=== PATIENT | female | born 2005 | race Caucasian/White ===

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

== ENCOUNTER 2025-02-17 14:24 | Outpatient (CLI) | payer BC, SELFPAY ==
--- OUTSIDE RECORDS SUMMARY | 2025-01-16 18:07 | XMS_ITS | Encounter Summary ---
Author Organization [employer] ([place], [place], [place], [place], [place]) Address [address] [place] [address] Care Team Providers Care President Finance Company Name Role Phone [facility] [place], Find-A-Doc Primary Care Provider Reason for Visit * Reason Comments Tachycardia Encounter Details Date Type Department Care Team (Late st Contact Info) Description 01/16/2025 6:07 PM EST - 01/16/2025 8:59 PM EST Emergency [facility] Emergency Department [address] [place] [address] Prateek Saavedra MD [address] [place] [address] [phone] [place] [address] [place] [address] [phone] Palpitations (Primary Dx) Discharge Disposition: Home or [...] on file Legal Sex Female 5:05 PM MANAGER REGULATORY Gender Identity Not on file Sexual Orientation [...] patient have homicidal thoughts? No 6:14 PM MANAGER REGULATORY Santino Betancur * Tidal Volume Answer Date of Assessment Author 350 01/16/2025 6:16 PM Santino Hoover * Prior Psychiatric Event Question Answer Date of Assessment Author Has patient had a prior psyc hiatric hospitalization or mental health admission? No 01/16/2025 6:14 PM MANAGER REGULATORY Santino Betancur * Shock Index Answer Date of Assessment Author 0.7 01/16/2025 7:50 PM MANAGER REGULATORY Hardeep Michele * Oxygen Therapy Question Answer Date of Assessment Author SpO2 100 01/16/2025 7:50 PM MANAGER REGULATORY Hardeep Paul * Mobility Question Answer Date of Assessment Author VTE Risk Score 3 01/16/2025 8:01 PM MANAGER REGULATORY Vinayak mott, User * Pain Assessment Timer Question Answer Date of Assessment Author Restart Pain Assessment Timer Yes 01/16/2025 6:11 PM Santino Hoover * Suicide Risk Level Answer Date of Assessment Author No Risk 01/16/2025 6:14 PM Santino Hoover * [facility] Fall Risk Assessment Question Answer Date of Assessment Author History of falls in last 3 [facility], including since admission 0 01/16/2025 6:14 PM MANAGER REGULATORY Agatha Betancur Confusion or Disorientation 0 01/16/2025 [...] Safety Measures Answer Date of Assessment Author [place] patient to surroundings;Hourly rounding 1 03/18/2024 6:14 [...] Author Breathing (WDL) WD 01/16/2025 6:22 PM MANAGER REGULATORY Charlee Medina RN * Circulation Question Answer Date of Assessment Author Circulation (WD) WD 01/16/2025 6:22 PM Charlee Naqvi RN * Disability Question Answer Date of Assessment Author Eye Opening 4 01/16/2025 6:22 PM Charlee Naqvi RN Best Motor Response 6 01/16/2025 6:22 PM Charlee Ford RN Best Verbal Response 5 01/16/2025 6:22 PM Charlee Marshall RN [place] Coma Scale Score 15 01/16/2025 6:22 PM Charlee Naqvi RN Disability (WD) WD 01/16/2025 6:22 PM MANAGER REGULATORY Charlee Prasad RN * Restart Vitals Timer Answer Date of Assessment Author Yes 01/16/2025 7:50 PM MANAGER REGULATORY Hardeep Michele * Pain Assessment Question Answer [...] 01/16/2025 6:11 PM Charlee Naqvi RN Bedside Sanforizer On Yes 01/16/2025 6:1 1 PM Charlee Naqvi RN Bedside Cardiac Audible Yes 01/16/2025 6:11 P M Charlee Naqvi RN Bedside Cardiac Alarms Set Yes 01/16/2025 6:1 1 PM Charlee Naqvi RN Cardiac (WDL) X 01/16/2025 6:11 PM Charlee Tracy RN * [place] Suicide Severity Rating Screening Question Answer Date [...] Safety Measures Answer Date of Assessment Author [place] patient to surroundings;Hourly rounding 1 03/18/2024 6:14 PM Santino Hoover * Height and Weight Question Answer Date of Assessment Author BMI (Calculated) 19.4 01/16/2025 6:16 PM MANAGER REGULATORY Santino Barrera * Vitals Question Answer Date of Assessment Author BP 123/72 01/16/2025 7:50 PM Hardeep Cox Pulse 86 01/16/2025 7:50 PM Hardeep Cox Resp 20 01/16/2025 7:50 PM Hardeep Cox * Airway Question Answer Date of Assessment Author Airway (WDLing) WDL 01/16/2025 6:22 PM Charlee Naqvi RN * Breathing Question Answer Date of Assessment Author Breathing ([facility]) WD 01/16/2025 6:22 PM MANAGER REGULATORY Charlee Medina RN * Circulation Question Answer Date of Assessment Author Circulation ([facility]) [facility] 01/16/2025 6:22 PM Charlee Naqvi RN * Disability Question Answer Date of Assessment Author Eye Opening 4 01/16/2025 6:22 PM Charlee Naqvi RN Best Motor Response 6 01/16/2025 6:22 PM CS Charlee Chao RN Best Verbal Response 5 01/16/2025 6:22 PM C Charlee Montaño RN [place] Coma Scale Score 15 01/16/2025 6:22 PM Charlee Naqvi RN Disability ([facility]) [facility] 01/16/2025 6:22 PM MANAGER REGULATORY Charlee Prasad RN * [place] Suicide Severity Rating Screening Question Answer Date [...] Date Author SpO2 100 01/16/2025 7:50 PM MANAGER REGULATORY Hardeep Paul * Suicide Risk Level Answer Entry Date Author No Risk 01/16/2025 6:14 PM Santino Hoover * Basic Safety Measures Answer Entry Date Author [place] patient to surroundings;Hourly rounding 1 03/18/2024 6:14 [...] Question Answer Entry Date Author Airway (L) [facility] 01/16/2025 6:22 PM MANAGER REGULATORY Charlee Gomez RN * Breathing Question Answer Entry Date Author Breathing ([facility]) [facility] 01/16/2025 6:22 PM MANAGER REGULATORY Charlee Medina RN * Circulation Question Answer Entry Date Author Circulation ([facility]) [facility] 01/16/2025 6:22 PM Charlee Naqvi RN * [...] 01/16/2025 6:11 PM Charlee Naqvi RN Bedside Sanforizer On Yes 01/16/2025 6:1 1 PM Charlee Naqvi RN Bedside Cardiac Audible Yes 01/16/2025 6:11 P M Charlee Naqvi RN Bedside Cardiac Alarms Set Yes 01/16/2025 6:1 1 PM Charlee Naqvi RN * [place] Suicide Severity Rating Screening Question Answer Entry [...] you can call the Find-a-Doc line at [phone] GER [facility] * Attachments The following attachments cannot be sent through Care Everywhere. * Palpitations ([place]) documented in this encounter ED Notes * Antonio Orr MD - 01/16/2025 6:30 PM EST Subjective Chief Complaint: Tachycardia Patient reports that her heart rate has been elevated for the last 4 days. She went to [facility] today and was told to come [...] Color, UA Yellow Clarity, UA Hazy Specific [place], UA 1.010 1.001 - 1.030 pH, UA [...] not been tachycardic here, was told by [facility] to come [facility] emergency department for further evaluation pending laboratory [...] the last 4 days. She went to [facility] today and was told to come [...] follow-up Robert Crabtree MD Specialty: Cardiology, Radiology [address] [place] [phone] Next Steps: Schedule an appointment as soon as possible for a visit in 3 day(s) [facility] Find[facility] Relationship: PCP - [facility] Find-a-Doc [facility] [id number] Next Steps: Schedule an appointment as soon as possible for a visit in 1 week(s) Electronically Signed By Antonio Orr MD 01/16/252052 [facility]ER [facility] * Santino Betancur - 01/16/2025 6:10 PM EST Pt arrived POV. She states she has had a fast heart rate since Sunday and feeling weak. She wentto [facility] and was sent to ER. Denies any pain. [facility] documented in this encounter Plan of Treatment [...] electronically signed by Collin Leroy MD Voice seam press operator technology ([employer]) is used for the dictation of this note and sound-alike words might be erroneously placed despite reviewing this note for accuracy. Errors in dictation may reflect use of voice recognition software and not all errors in seam press operator may have been detected prior to [...] electronically signed by Collin Leroy MD Voice seam press operator technology ([employer]) is used for the dictation of this note and sound-alike words might be erroneously placed despite reviewing this note for accuracy. Errors in dictation may reflect use of voice recognition software and not all errors in seam press operator may have been detected prior to signing. us Prateek Saavedra MD IMG DIAGNOSTIC IMAGING ORDERABLE S Final Result * (ABNORMAL) Urinalysis Microscopic Only (01/16/2025 6:47 PM EST) [facility] WBC, UA 0-5 None Seen, 0-5 /HPF 01/16/2025 7:03 PM EST [facility] RBC, UA 0-2 None Seen, 0-2 /HPF 01/16/2025 7:03 PM EST [facility] Bacteria, UA Trace(A) None Seen 01/16/2025 7:03 PM EST [facility] SQUAMOUS EPITHELIAL 0-2(A) None Seen /HPF 01/16/2025 7:03 PM [facility] Urine URINE SPECIMEN COLLECTION, CLEAN CATCH / Unknown 01/16/2025 6:47 PM EST 01/16/2025 6:53 PM EST us Prateek Saavedra MD URINE ORDERABLES Final Result [facility] [address] [place] [address] * Screen, urine (01/16/2025 6:47 PM EST) Pathologist [facility] Preg Test, Ur Negative Negative, Inconclusive 01/16/2025 7:03 PM EST [facility] Urine 01/16/2025 6:47 PM EST 01/16/2025 6:52 PM EST Prateek Saavedra MD URINE ORDERABLES Final Result [facility] [address] [place] [address], [facility] [phone] * Triage Drug Screen, Urine (01/16/2025 6:47 PM EST) Amphetamine Urine Negative Negative 025 7:04 PM EST [facility] Barbiturate Screen Negative Negative 2024 7:04 PM [facility] Benzodiazepine Screen Negative Negative 7:04 PM [facility] Cocaine (Metab.) Screen Negative Negative 1 03/18/2024 7:04 PM [facility] MDMA Ur Negative Negative 01/16/2025 7:04 PM [facility] Methadone Screen Negative Negative 01/17/20 7:04 PM [facility] Opiate Screen Negative Negative 01/16/2025 7:04 PM [facility] Phencyclidine Screen Negative Negative 12/28 7:04 PM [facility] Tricyclic Screen Negative Negative 01/17/20 7:04 PM [facility] Tetrahydrocannabinol Negative Negative 12/28 7:04 PM [facility] Methamphetamine Screen Negative Negative 7:04 PM [facility] Oxycodone Screen Negative Negative 01/17/20 7:04 PM [facility] Urine 01/16/2025 6:47 PM EST 01/16/2025 6:52 PM EST Narrative [facility] - 01/16/2025 7:04 PM EST [...] Prateek Saavedra MD URINE ORDERABLES Final Result [facility] [address] [place] [address], [facility] [phone] * (ABNORMAL) Urinalysis, Reflex Microscopic and Culture If Indicated (01/16/2025 6:47 PM EST) Color, UA Yellow 01/16/2025 7:02 PM [facility] Clarity, UA Hazy 01/16/2025 7:02 PM [facility] Specific [place], UA 1.010 1.001 - 1.030 01/16/2025 7:02 PM [facility] pH, UA 8.0(H) 6.0 - 7.5 01/16/2025 7:02 PM [facility] Leukocytes, UA Trace(A) Negative 01/16/2025 7:02 PM [facility] Nitrite, UA Negative Negative 01/16/2025 7:02 PM [facility] Protein, UA Negative Negative 01/16/2025 7:02 PM [facility] Glucose, UA Negative Negative 01/16/2025 7:02 PM [facility] Ketones, UA Negative Negative 01/16/2025 7:02 PM [facility] Bilirubin, UA Negative Negative 01/16/2025 7:02 PM [facility] Blood, UA Trace(A) Negative 01/16/2025 7:02 PM [facility] Urobilinogen, UA 0.2 mg/dL Normal 01/16/2025 7:02 PM [facility] Specimen Source Urine, Clean Catch 01/16/2025 7:02 PM [facility] Urine URINE SPECIMEN COLLECTION, CLEAN CATCH / Unknown 01/16/2025 6:47 PM EST 01/16/2025 6:53 PM EST us Prateek Saavedra MD URINE ORDERABLES Final Result Performing Organization Address City/[facility]/ZIP Co de Phone Number [facility] [address] [place] [address] * TSH (01/16/2025 6:36 PM EST) Pathologist [facility] TSH 2.191 0.358 - 3.740 uIU/mL 01/16/2025 7:55 PM EST [facility] Blood Venipuncture / Unknown 01/16/2025 6:36 PM EST 01/16/2025 6:51 PM EST Narrative [facility] - 01/16/2025 7:55 PM EST Biotin supplements can cause clinically significant incorrect lab test results. The FDA has seen an increase in the number of reported adverse events related to biotin interference with lab tests. Prateek Saavedra MD LAB BLOOD ORDERABLES Final Resul t Performing Organization Address City/[facility] Co de Phone Number [facility] [address] [place] [address] * COVID/Influenza A+B Antigen (01/16/2025 6:36 PM EST) [facility] SARS-COV/COV 2 ANTIGEN Negative Negative, Invalid 01/16/2025 7:42 PM EST [facility] INFLUENZA AAG Negative Negative, Invalid 01/16/2025 7:42 PM EST [facility] INFLUENZA BAG Negative Negative, Invalid 01/16/2025 7:42 PM EST [facility] Nasal Swab (Nasal) 01/16/2025 6:36 PM EST 01/16/2025 6:51 PM EST Narrative [facility] - 01/16/2025 7:42 PM EST [employer] Veritor System for Rapid Detection of SARS-CoV-2 [...] MICROBIOLOGY - GENERAL ORDERABLE S Final Result [facility] [address] [place] [address], [facility] [phone] * Comprehensive metabolic panel (01/16/2025 6:36 PM EST) Sodium 141 136 - 145 meq/L 01/16/2025 7:28 PM EST [facility] Potassium 3.5 3.5 - 5.1 meq/L 01/16/2025 7:28 PM [facility] Chloride 106 98 - 107 meq/L 01/16/2025 7:28 PM [facility] CO2 26 21 - 32 meq/L 01/16/2025 7:28 PM [facility] Calcium 8.7 8.5 - 10.1 mg/dL 01/16/2025 7:28 PM [facility] Glucose 95 74 - 100 mg/dL 01/16/2025 7:28 PM [facility] BUN 12 7 - 18 mg/dL 01/16/2025 7:28 PM [facility] Creatinine 0.88 0.55 - 1.02 mg/dL 01/16/2025 7:28 PM [facility] Albumin 3.8 3.4 - 5.0 g/dL 01/16/2025 7:28 PM [facility] Alkaline Phosphatase 55 50 - 136 U/L 01/16/2025 7:28 PM [facility] ALT 24 12 - 78 U/L 01/16/2025 7:28 PM [facility] AST 18 15 - 37 U/L 01/16/2025 7:28 PM [facility] Total Bilirubin 0.3 0.2 - 1.0 mg/dL 01/16/2025 7:28 PM [facility] Protein, Total 7.3 6.4 - 8.2 gm/dL 01/16/2025 7:28 PM [facility] Anion Gap 13 - 01/16/2025 7:28 PM [facility] Globulin 3.5 0.4 - 4.9 g/dL 01/16/2025 7:28 PM [facility] Osmolality Calc 280.8 mOsm/kg 7:28 PM [facility] eGFR (mL/min/1.73m2) >60 >=60 mL/min/1.7 3m2 01/16/2025 7:28 PM [facility] Comment:ESTIMATED GFR IS NOT ACCURATE CREATININE CLEARANCE IN PREDICTING GLOMERULAR FILTRATION RATE. ESTIMATED GFR IS NOT APPLICABLE FOR DIALYSIS PATIENTS. Blood Venipuncture / Unknown 01/16/2025 6:36 PM EST 01/16/2025 6:51 PM EST us Prateek Saavedra MD LAB BLOOD ORDERABLES Final Resul t [facility] [address] [place] [address], [facility] [phone] * CBC with Auto Diff (01/16/2025 6:36 PM EST) WBC 7.7 4.0 - 10.0 K/ L 01/16/2025 7:02 PM [facility] RBC 4.29 3.93 - 5.22 M/ L 01/16/2025 7:02 PM [facility] Hemoglobin 13.2 11.2 - 15.7 GM/DL 01/16/2025 7:02 PM [facility] Hematocrit 38.9 34.1 - 44.9 % 01/16/2025 7:02 PM [facility] MCV 91 79 - 95 fL 01/16/2025 7:02 PM [facility] MCH 30.8 25.6 - 32.2 pg 01/16/2025 7:02 PM [facility] MCHC 33.9 32.3 - 36.5 GM/DL 01/16/2025 7:02 PM [facility] RDW 11.9 11.5 - 14.5 % 01/16/2025 7:02 PM [facility] Platelets 280 182 - 369 K/CU MM 01/16/2025 7:02 PM [facility] MPV 9.9 9.4 - 12.4 fL 01/16/2025 7:02 PM [facility] Nucleated Red Blood Cell 0.0 0 - 0.2 % 01/16/2025 7:02 PM [facility] % Neutros 53 42 - 75 % 01/16/2025 7:02 PM [facility] % Lymphs 35 19 - 52 % 01/16/2025 7:02 PM [facility] % Monos 8 5 - 13 % 01/16/2025 7:02 PM [facility] % Eos 2.2 1.0 - 7.0 % 01/16/2025 7:02 PM [facility] % Baso 1 0 - 2 % 01/16/2025 7:02 PM [facility] NRBC Absolute <0.01 0 - 0.012 K/ul 01/16/2025 7:02 PM [facility] # Neutros 4.10 1.56 - 6.13 K/ L 01/16/2025 7:02 PM [facility] # Lymphs 2.71 K/ L 01/16/2025 7:02 PM EST [facility] # Monos 0.60 0.24 - 0.82 K/ L 01/16/2025 7:02 PM EST [facility] # Eos 0.17 0.00 - 6.00 K/ L 01/16/2025 7:02 PM EST [facility] # Baso 0.06 0.01 - 0.08 K/ L 01/16/2025 7:02 PM EST [facility] % Imm Grans 0.70 % 01/16/2025 7:02 PM EST [facility] # IG 0.05 0.00 - 0.05 K/uL 01/16/2025 7:02 PM [facility] Blood Venipuncture / Unknown 01/16/2025 6:36 PM EST 01/16/2025 6:51 PM EST Narrative [facility] - 01/16/2025 7:02 PM EST [...] ORDERABLES Final Resul t Performing Organization Address City/State/[facility] Co de Phone Number [facility] [address] [place] [address] * ECG 12 lead (01/16/2025 6:11 PM EST) VENTRICULAR RATE EKG/MIN 93 BPM GE MUSE ATRIAL RATE (MCT) 93 BPM GE MUSE OK Interval 140 ms GE MUSE QRS-INTERVAL (MSEC) 78 ms GE MUSE QT Interval 348 ms GE MUSE QTC Interval 432 ms GE MUSE P [place] 80 degrees GE MUSE R AXIS (MCT) 87 degrees GE MUSE T Wave [place] 67 degrees GE MUSE [place] Diagnosis Normal sinus rhythm with sinus arrhythmia [...] Michele) documented in this encounter Care Teams President Finance Company Relationship Specialty Start Date End Date [facility] Connection, Find-A-Doc [facility] [place] [address] PCP - General 01/16/25 01/27/25 documented as of this encounter
--- OUTSIDE RECORDS SUMMARY | 2025-02-17 14:27 | XMS_ITS | Clinical Summary ---
Author Organization [employer] ([place], [place], [place], [place], [place]) Address [address] [place] [address] Care Team Providers Care Last Chalker Name Role Phone Daja Gallagher ИВАН Primary Care Provider Allergies No known active allergies Medications No known medications Encounters Date Type Department Care Team Description 01/16/2025 6:07 PM EST - 01/16/2025 8:59 PM EST Emergency [facility] [address] [place] [address] Prateek Saavedra MD Fahey, Nicholas, MD Palpitations (Primary Dx) Discharge Disposition: Home or Self Care 01/16/2025 Travel from Last 3 Months Social History Tobacco Use Types Packs/Day Years Used Date Smoking Tobacco: Never Smokeless Tobacco: Never Tobacco Cessation:Counseling Given: Not Answered Alcohol Use Standard Drinks/Week Comments Never 0 (1 standard drink = 0.6 oz pur e alcohol) Comments Unknown Sex and Gender Information Value Date Recorded Sex Assigned at Not on file 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 Gender Identity Not on file Sexual Orientation Not on file Last Filed Vital Signs Vital Sign Reading [...] Mass Index 19.37 01/16/2025 6:16 PM EST Plan of Treatment Health Maintenance Due Date Last Done Comments Depression Screening (12+) 2017 HIV Screening 02/10/2020 Meningococcal B Vaccine (1 of 2 - Standard) 2021 Hepatitis C Screening 2023 COVID-19 VACCINE (1 - season) 2024 Influenza Vaccine (#1) 2024 DTAP/TDAP/TD VACCINES (7 - Td or Tdap) 11/25/2025 11/26/2015, 02/15/2009, 02/15/2009, Additional history exists Tobacco Cessation Counseling and Screening (12+) 01/16/2026 01/16/2025 Pneumococcal Vaccine: 0-49 Years Aged Out 02/16/2006, 2005, 2005, Additional history exists No longer eligible based on patient's age to complete this topic Procedures Procedure Name Priority Date/Time Associated Diagnosis Comments XR CHEST PA AND LATERAL STAT 01/16/2025 7:12 PM EST URINALYSIS MICROSCOPIC STAT 6:47 PM EST SCREEN, URINE STAT 01/16/2025 6:47 PM EST TRIAGE DRUG SCREEN, URINE STAT 01/16/2025 6:47 PM EST URINALYSIS, REFLEX MICROSCOPIC AND CULTURE IF INDICATED STAT 01/16/2025 6:47 PM EST TSH Add-On 01/16/2025 6:36 PM EST COMPREHENSIVE METABOLIC PANEL STAT 01/16/2025 6:36 PM EST CBC W/ AUTO DIFF STAT 01/16/2025 6:36 PM EST COVID19 SARS-COV/COV-2 INFLUENZA A/B AG STAT 01/16/2025 6:36 PM EST FS_MODEL_IP_ECG 12-LEAD STAT 01/16/2025 6:11 PM EST EKG-SCANNED 01/16/2025 from Last 3 Months Results * XR chest 2 views (01/16/2025 7:12 PM EST) Anatomical Region Laterality Modality Chest X-Ray 01/18/2025 6:17 AM EST Impressions 01/18/2025 6:19 AM EST Unremarkable two-view chest. Images reviewed, interpreted, dictated and electronically signed by Collin Leroy MD Voice waste reduction coordinator technology (Power Scribe) is used for the dictation of this note and sound-alike words might be erroneously placed despite reviewing this note for accuracy. Errors in dictation may reflect use of voice recognition software and not all errors in waste reduction coordinator may have been detected prior to signing. [...] electronically signed by Collin Leroy MD Voice waste reduction coordinator technology (Power Scribe) is used for the dictation of this note and sound-alike words might be erroneously placed despite reviewing this note for accuracy. Errors in dictation may reflect use of voice recognition software and not all errors in waste reduction coordinator may have been detected prior to signing. Prateek Hill MD IMG DIAGNOSTIC IMAGING ORDERABLE S Final Result * (ABNORMAL) Urinalysis, Reflex Microscopic and Culture If Indicated (01/16/2025 6:47 PM EST) Color, UA Yellow 01/16/2025 7:02 PM [facility] Clarity, UA Hazy 01/16/2025 7:02 PM [facility] Specific [place], UA 1.010 1.001 - 1.030 01/16/2025 7:02 PM [facility] pH, UA 8.0(H) 6.0 - 7.5 01/16/2025 7:02 PM [facility] Leukocytes, UA Trace(A) Negative 01/16/2025 7:02 PM [facility] Nitrite, UA Negative Negative 01/16/2025 7:02 PM [facility] Protein, UA Negative Negative 01/16/2025 7:02 PM [facility] Glucose, UA Negative Negative 01/16/2025 7:02 PM [facility] Ketones, UA Negative Negative 01/16/2025 7:02 PM [facility] Bilirubin, UA Negative Negative 01/16/2025 7:02 PM [facility] Blood, UA Trace(A) Negative 01/16/2025 7:02 PM [facility] Urobilinogen, UA 0.2 mg/dL Normal 01/16/2025 7:02 PM [facility] Specimen Source Urine, Clean Catch 01/16/2025 7:02 PM [facility] Urine URINE SPECIMEN COLLECTION, CLEAN CATCH / Unknown 01/16/2025 6:47 PM EST 01/16/2025 6:53 PM EST us Prateek Saavedra MD URINE ORDERABLES Final Result [facility] [address] [place] [address] * Triage Drug Screen, Urine (01/16/2025 6:47 PM EST) Amphetamine Urine Negative Negative 025 7:04 PM EST [facility] Barbiturate Screen Negative Negative 2024 7:04 PM [facility] Benzodiazepine Screen Negative Negative 7:04 PM [facility] Cocaine (Metab.) Screen Negative Negative 1 03/18/2024 7:04 PM [facility] MDMA Ur Negative Negative 01/16/2025 7:04 PM [facility] Methadone Screen Negative Negative 01/17/20 7:04 PM [facility] Opiate Screen Negative Negative 01/16/2025 7:04 PM [facility] Phencyclidine Screen Negative Negative 12/28 7:04 PM [facility] Tricyclic Screen Negative Negative 01/17/20 7:04 PM [facility] Tetrahydrocannabinol Negative Negative 12/28 7:04 PM [facility] Methamphetamine Screen Negative Negative 7:04 PM [facility] Oxycodone Screen Negative Negative 01/17/20 7:04 PM [facility] Urine 01/16/2025 6:47 PM EST 01/16/2025 6:52 PM EST Narrative [facility] - 01/16/2025 7:04 PM EST This urine drug of abuse screen is for medical purposes only. A positive result is a preliminary analytical result which has not been confirmed. Drug Cutoff Limits are: Amp/Methamp: 1000 ng/mL Barbiturates: 200 ng/mL Benzodiazepines: 200 ng/mL Cannabinoids: 50 ng/mL Cocaine Metabolites: 300 ng/mL Fentanyl: 1.0 ng/mL Opiates: 300 ng/mL Prateek Saavedra MD URINE ORDERABLES Final Result [facility] [address] [place] [address] * (ABNORMAL) Urinalysis Microscopic Only (01/16/2025 6:47 PM EST) WBC, UA 0-5 None Seen, 0-5 /HPF 01/16/2025 7:03 PM EST [facility] RBC, UA 0-2 None Seen, 0-2 /HPF 01/16/2025 7:03 PM [facility] Bacteria, UA Trace(A) None Seen 01/16/2025 7:03 PM [facility] SQUAMOUS EPITHELIAL 0-2(A) None Seen /HPF 01/16/2025 7:03 PM [facility] Urine URINE SPECIMEN COLLECTION, CLEAN CATCH / Unknown 01/16/2025 6:47 PM EST 01/16/2025 6:53 PM EST us Prateek Saavedra MD URINE ORDERABLES Final Result Performing Organization Address City/[facility]/ZIP Co de Phone Number [facility] [address] [place] [address] * Screen, urine (01/16/2025 6:47 PM EST) Preg Test, Ur Negative Negative, Inconclusive 01/16/2025 7:03 PM [facility] Urine 01/16/2025 6:47 PM EST 01/16/2025 6:52 PM EST us Prateek Saavedra MD URINE ORDERABLES Final Result Performing Organization Address City/[facility]/ZIP Co de Phone Number [facility] [address] [place] [address] * COVID/Influenza A+B Antigen (01/16/2025 6:36 PM EST) SARS-COV/COV 2 ANTIGEN Negative Negative, Invalid 01/16/2025 7:42 PM [facility] INFLUENZA AAG Negative Negative, Invalid 01/16/2025 7:42 PM [facility] INFLUENZA BAG Negative Negative, Invalid 01/16/2025 7:42 PM [facility] Nasal Swab (Nasal) 01/16/2025 6:36 PM EST 01/16/2025 6:51 PM EST [facility] - 01/16/2025 7:42 PM EST The [id number] System for Rapid Detection of SARS-CoV-2 & [...] MICROBIOLOGY - GENERAL ORDERABLE S Final Result Performing Organization Address City/State/[facility] Co de Phone Number [facility] [address] [place] [address] * CBC with Auto Diff (01/16/2025 6:36 PM EST) WBC 7.7 4.0 - 10.0 K/ L 01/16/2025 7:02 PM [facility] RBC 4.29 3.93 - 5.22 M/ L 01/16/2025 7:02 PM [facility] Hemoglobin 13.2 11.2 - 15.7 GM/DL 01/16/2025 7:02 PM [facility] Hematocrit 38.9 34.1 - 44.9 % 01/16/2025 7:02 PM [facility] MCV 91 79 - 95 fL 01/16/2025 7:02 PM [facility] MCH 30.8 25.6 - 32.2 pg 01/16/2025 7:02 PM [facility] MCHC 33.9 32.3 - 36.5 GM/DL 01/16/2025 7:02 PM [facility] RDW 11.9 11.5 - 14.5 % 01/16/2025 7:02 PM [facility] Platelets 280 182 - 369 K/CU MM 01/16/2025 7:02 PM [facility] MPV 9.9 9.4 - 12.4 fL 01/16/2025 7:02 PM [facility] Nucleated Red Blood Cell 0.0 0 - 0.2 % 01/16/2025 7:02 PM [facility] % Neutros 53 42 - 75 % 01/16/2025 7:02 PM [facility] % Lymphs 35 19 - 52 % 01/16/2025 7:02 PM [facility] % Monos 8 5 - 13 % 01/16/2025 7:02 PM [facility] % Eos 2.2 1.0 - 7.0 % 01/16/2025 7:02 PM [facility] % Baso 1 0 - 2 % 01/16/2025 7:02 PM [facility] NRBC Absolute <0.01 0 - 0.012 K/ul 01/16/2025 7:02 PM [facility] # Neutros 4.10 1.56 - 6.13 K/ L 01/16/2025 7:02 PM [facility] # Lymphs 2.71 K/ L 01/16/2025 7:02 PM [facility] # Monos 0.60 0.24 - 0.82 K/ L 01/16/2025 7:02 PM [facility] # Eos 0.17 0.00 - 6.00 K/ L 01/16/2025 7:02 PM EST [facility] # Baso 0.06 0.01 - 0.08 K/ L 01/16/2025 7:02 PM EST [facility] % Imm Grans 0.70 % 01/16/2025 7:02 PM EST [facility] # IG 0.05 0.00 - 0.05 K/uL 01/16/2025 7:02 PM EST [facility] Blood Venipuncture / Unknown 01/16/2025 6:36 PM EST 01/16/2025 6:51 PM EST Narrative [facility] - 01/16/2025 7:02 PM EST When [...] ORDERABLES Final Resul t Performing Organization Address City/[facility]/ZIP Co de Phone Number [facility] [address] [place] [address] * TSH (01/16/2025 6:36 PM EST) TSH 2.191 0.358 - 3.740 uIU/mL 01/16/2025 7:55 PM EST [facility] Blood Venipuncture / Unknown 01/16/2025 6:36 PM EST 01/16/2025 6:51 PM EST Narrative [facility] - 01/16/2025 7:55 PM EST Biotin supplements can cause clinically significant incorrect lab test results. The FDA has seen an increase in the number of reported adverse events related to biotin interference with lab tests. us Prateek Saavedra MD LAB BLOOD ORDERABLES Final Resul t Performing Organization Address City/[facility] Co de Phone Number [facility] [address] [place] [address] * Comprehensive metabolic panel (01/16/2025 6:36 PM EST) Sodium 141 136 - 145 meq/L 01/16/2025 7:28 PM [facility] Potassium 3.5 3.5 - 5.1 meq/L 01/16/2025 7:28 PM [facility] Chloride 106 98 - 107 meq/L 01/16/2025 7:28 PM [facility] CO2 26 21 - 32 meq/L 01/16/2025 7:28 PM [facility] Calcium 8.7 8.5 - 10.1 mg/dL 01/16/2025 7:28 PM [facility] Glucose 95 74 - 100 mg/dL 01/16/2025 7:28 PM [facility] BUN 12 7 - 18 mg/dL 01/16/2025 7:28 PM [facility] Creatinine 0.88 0.55 - 1.02 mg/dL 01/16/2025 7:28 PM [facility] Albumin 3.8 3.4 - 5.0 g/dL 01/16/2025 7:28 PM [facility] Alkaline Phosphatase 55 50 - 136 U/L 01/16/2025 7:28 PM [facility] ALT 24 12 - 78 U/L 01/16/2025 7:28 PM [facility] AST 18 15 - 37 U/L 01/16/2025 7:28 PM [facility] Total Bilirubin 0.3 0.2 - 1.0 mg/dL 01/16/2025 7:28 PM [facility] Protein, Total 7.3 6.4 - 8.2 gm/dL 01/16/2025 7:28 PM [facility] Anion Gap 13 - 01/16/2025 7:28 PM [facility] Globulin 3.5 0.4 - 4.9 g/dL 01/16/2025 7:28 PM [facility] Osmolality Calc 280.8 mOsm/kg 7:28 PM [facility] eGFR (mL/min/1.73m2) >60 >=60 mL/min/1.7 3m2 01/16/2025 7:28 PM EST [facility] Comment:ESTIMATED GFR IS NOT ACCURATE CREATININE CLEARANCE IN PREDICTING GLOMERULAR FILTRATION RATE. ESTIMATED GFR IS NOT APPLICABLE FOR DIALYSIS PATIENTS. Blood Venipuncture / Unknown 01/16/2025 6:36 PM EST 01/16/2025 6:51 PM EST Prateek Saavedra MD LAB BLOOD ORDERABLES Final Resul t Performing Organization Address City/[facility]/ZIP Co de Phone Number [facility] [address] [phone] * ECG 12 lead (01/16/2025 6:11 PM EST) VENTRICULAR RATE EKG/MIN 93 BPM GE MUSE ATRIAL RATE (MCT) 93 BPM GE MUSE ME Interval 140 ms GE MUSE QRS-INTERVAL (MSEC) 78 ms GE MUSE QT Interval 348 ms GE MUSE QTC Interval 432 ms GE MUSE P [place] 80 degrees GE MUSE R AXIS (MCT) 87 degrees GE MUSE T Wave [place] 67 degrees GE MUSE [place] Diagnosis Normal sinus rhythm with sinus arrhythmia Normal ECG No previous ECGs available Confirmed by Scarlett PACE SUZANNE ([id number]) on 01/21/2025 5:32:41 PM GE MUSE 01/16/2025 6:11 PM EST 01/21/2025 5:32 PM EST Prateek Saavedra MD ECG ORDERABLES Final Result Performing Organization Address City/[facility]/ZIP Co de Phone Number GE MUSE * EKG-SCANNED (01/16/2025) Narrative 01/16/2025 Ordered by an unspecified provider. Default Scanning Provider SCAN ORDERS Final Result from Last [address] [place] [address] BLUE CROSS/BLUE SHIELD Care Teams Last Chalker Relationship Specialty Start Date End Date Daja Gallagher, HOUSE MOVING SUPERVISOR [address] [place] [address] PCP - General Nurse Practitioner 01/28/25
--- OUTSIDE RECORDS SUMMARY | 2025-02-17 14:27 | XMS_ITS | Encounter Summary ---
Author Organization [employer] ([place], [place], [place], [place], [place]) Address [address] [place] [address] Care Team Providers Care Telephoto Installer Name Role Phone [facility] Yoseph Loyola-A-Francisco Primary Care Provider Encounter Details Date Type Department Care Team (Latest Contact Info) Description 01/16/2025 Travel Social History Tobacco Use Types Packs/Day Years Used Date Smoking Tobacco: Never Smokeless Tobacco: Never Alcohol Use Standard Drinks/Week Comments Never 0 (1 standard drink = 0.6 oz pur e alcohol) Comments Unknown Sex and Gender Information Value Date Recorded Sex Assigned at Not on file 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 No / Unsure 01/16/2025 6:09 PM Santino Hoover Do you have any of the follo wing new or worsening symptoms? None of these 01/16/2025 6:09 PM Carmela Hoover documented as of this encounter Plan of Treatment Not on file documented as of this encounter Visit Diagnoses Not on filedocumented in this encounter Care Teams Telephoto Installer Relationship Specialty Start Date End Date [facility] [place] [address] PCP - General 01/16/25 01/27/25 documented as of this encounter
--- OUTSIDE RECORDS SUMMARY | 2025-02-17 14:27 | XMS_ITS | Referral Summary ---
Author Organization [employer] ([place], [place], [place], [place], [place]) Address [address] [place] [address] Care Team Providers Care Community Theater Actor Name Role Phone Daja Gallagher ИВАН Primary Care Provider Encounters Date Type Department Care Team Description 01/16/2025 Travel 01/16/2025 6:07 PM EST - 01/16/2025 8:59 PM EST Emergency [facility] [address] [place] [address] Prateek Saavedra MD Fahey, Nicholas, MD Palpitations (Primary Dx) Discharge Disposition: Home or Self Care from Last 3 Months Allergies No known active allergies Medications No known medications Social History Tobacco Use Types Packs/Day Years Used Date Smoking Tobacco: Never Smokeless Tobacco: Never Tobacco Cessation:Counseling Given: Not Answered Alcohol Use Standard Drinks/Week Comments Never 0 (1 standard drink = 0.6 oz pur e alcohol) Comments Unknown Sex and Gender Information Value Date Recorded Sex Assigned at Not on file 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 Errors in dictation may reflect use of voice recognition software and not all errors in lead python developer may have been detected prior to signing. [...] electronically signed by Collin Leroy MD Voice lead python developer technology (Power Scribe) is used for the dictation of this note and sound-alike words might be erroneously placed despite reviewing this note for accuracy. Errors in dictation may reflect use of voice recognition software and not all errors in lead python developer may have been detected prior to signing. Prateek Saavedra MD IMG DIAGNOSTIC IMAGING ORDERABLE S Final Result * (ABNORMAL) Urinalysis, Reflex Microscopic and Culture If Indicated (01/16/2025 6:47 PM EST) Color, UA Yellow 01/16/2025 7:02 PM EST [facility] Clarity, UA Hazy 01/16/2025 7:02 PM EST [facility] Specific [place], UA 1.010 1.001 - 1.030 01/16/2025 7:02 PM [facility] pH, UA 8.0(H) 6.0 - 7.5 01/16/2025 7:02 PM [facility] Leukocytes, UA Trace(A) Negative 01/16/2025 7:02 PM [facility] Nitrite, UA Negative Negative 01/16/2025 7:02 PM [facility] Protein, UA Negative Negative 01/16/2025 7:02 PM [facility] Glucose, UA Negative Negative 01/16/2025 7:02 PM [facility] Ketones, UA Negative Negative 01/16/2025 7:02 PM [facility] Bilirubin, UA Negative Negative 01/16/2025 7:02 PM [facility] Blood, UA Trace(A) Negative 01/16/2025 7:02 PM [facility] Urobilinogen, UA 0.2 mg/dL Normal 01/16/2025 7:02 PM [facility] Specimen Source Urine, Clean Catch 01/16/2025 7:02 PM [facility] Urine URINE SPECIMEN COLLECTION, CLEAN CATCH / Unknown 01/16/2025 6:47 PM EST 01/16/2025 6:53 PM EST Prateek Saavedra MD URINE ORDERABLES Final Result [facility] [address] [place] [address] * Triage Drug Screen, Urine (01/16/2025 6:47 PM EST) Amphetamine Urine Negative Negative 025 7:04 PM [facility] Barbiturate Screen Negative Negative 2024 7:04 PM [facility] Benzodiazepine Screen Negative Negative 7:04 PM [facility] Cocaine (Metab.) Screen Negative Negative 1 03/18/2024 7:04 PM [facility] MDMA Ur Negative Negative 01/16/2025 7:04 PM [facility] Methadone Screen Negative Negative 01/17/20 7:04 PM [facility] Opiate Screen Negative Negative 01/16/2025 7:04 PM [facility] Phencyclidine Screen Negative Negative 12/28 7:04 PM [facility] Tricyclic Screen Negative Negative 01/17/20 7:04 PM [facility] Tetrahydrocannabinol Negative Negative 12/28 7:04 PM [facility] Methamphetamine Screen Negative Negative 7:04 PM [facility] Oxycodone Screen Negative Negative 01/17/20 7:04 PM [facility] Urine 01/16/2025 6:47 PM EST 01/16/2025 [...] ORDERABLES Final Result [facility] [address] [place] [address] * (ABNORMAL) Urinalysis Microscopic Only (01/16/2025 6:47 PM EST) WBC, UA 0-5 None Seen, 0-5 /HPF 01/16/2025 7:03 PM [facility] RBC, UA 0-2 None Seen, 0-2 /HPF 01/16/2025 7:03 PM [facility] Bacteria, UA Trace(A) None Seen 01/16/2025 7:03 PM [facility] SQUAMOUS EPITHELIAL 0-2(A) None Seen /HPF 01/16/2025 7:03 PM [facility] Urine URINE SPECIMEN COLLECTION, CLEAN CATCH / Unknown 01/16/2025 6:47 PM EST 01/16/2025 6:53 PM EST us Prateek Saavedra MD URINE ORDERABLES Final Result [facility] [address] [place] [address] * Screen, urine (01/16/2025 6:47 PM EST) Preg Test, Ur Negative Negative, Inconclusive 01/16/2025 7:03 PM EST [facility] Urine 01/16/2025 6:47 PM EST 01/16/2025 6:52 PM EST Prateek Saavedra MD URINE ORDERABLES Final Result [facility] [address] [place] [address] * COVID/Influenza A+B Antigen (01/16/2025 6:36 PM EST) Pathologist [facility] SARS-COV/COV 2 ANTIGEN Negative Negative, Invalid 01/16/2025 7:42 PM EST [facility] INFLUENZA AAG Negative Negative, Invalid 01/16/2025 7:42 PM EST [facility] INFLUENZA BAG Negative Negative, Invalid 01/16/2025 7:42 PM EST [facility] Nasal Swab (Nasal) 01/16/2025 6:36 PM EST 01/16/2025 6:51 PM EST Narrative [facility] - 01/16/2025 7:42 PM EST The [employer]narsoftitor System for Rapid Detection of SARS-CoV-2 & [...] basis for treatment or other management decisions. us Prateek Saavedra MD MICROBIOLOGY - GENERAL ORDERABLE S Final Result [facility] [address] [place] [address], [facility] [phone] * CBC with Auto Diff (01/16/2025 6:36 PM EST) WBC 7.7 4.0 - 10.0 K/ L 01/16/2025 7:02 PM [facility] RBC 4.29 3.93 - 5.22 M/ L 01/16/2025 7:02 PM [facility] Hemoglobin 13.2 11.2 - 15.7 GM/DL 01/16/2025 7:02 PM [facility] Hematocrit 38.9 34.1 - 44.9 % 01/16/2025 7:02 PM [facility] MCV 91 79 - 95 fL 01/16/2025 7:02 PM [facility] MCH 30.8 25.6 - 32.2 pg 01/16/2025 7:02 PM [facility] MCHC 33.9 32.3 - 36.5 GM/DL 01/16/2025 7:02 PM [facility] RDW 11.9 11.5 - 14.5 % 01/16/2025 7:02 PM [facility] Platelets 280 182 - 369 K/CU MM 01/16/2025 7:02 PM [facility] MPV 9.9 9.4 - 12.4 fL 01/16/2025 7:02 PM [facility] Nucleated Red Blood Cell 0.0 0 - 0.2 % 01/16/2025 7:02 PM [facility] % Neutros 53 42 - 75 % 01/16/2025 7:02 PM [facility] % Lymphs 35 19 - 52 % 01/16/2025 7:02 PM [facility] % Monos 8 5 - 13 % 01/16/2025 7:02 PM [facility] % Eos 2.2 1.0 - 7.0 % 01/16/2025 7:02 PM [facility] % Baso 1 0 - 2 % 01/16/2025 7:02 PM [facility] NRBC Absolute <0.01 0 - 0.012 K/ul 01/16/2025 7:02 PM [facility] # Neutros 4.10 1.56 - 6.13 K/ L 01/16/2025 7:02 PM [facility] # Lymphs 2.71 K/ L 01/16/2025 7:02 PM [facility] # Monos 0.60 0.24 - 0.82 K/ L 01/16/2025 7:02 PM [facility] # Eos 0.17 0.00 - 6.00 K/ L 01/16/2025 7:02 PM [facility] # Baso 0.06 0.01 - 0.08 K/ L 01/16/2025 7:02 PM [facility] % Imm Grans 0.70 % 01/16/2025 7:02 PM [facility] # IG 0.05 0.00 - 0.05 K/uL 01/16/2025 7:02 PM [facility] Blood Venipuncture / Unknown 01/16/2025 6:36 PM EST 01/16/2025 6:51 PM [facility] - 01/16/2025 7:02 PM EST When [...] ORDERABLES Final Resul t Performing Organization Address City/[facility]/ZIP Co de Phone Number [facility] [address] [place] [address] * TSH (01/16/2025 6:36 PM EST) [facility] TSH 2.191 0.358 - 3.740 uIU/mL 01/16/2025 7:55 PM EST [facility] Blood Venipuncture / Unknown 01/16/2025 6:36 PM EST 01/16/2025 6:51 PM EST [facility] - 01/16/2025 7:55 PM EST Biotin supplements can cause clinically significant incorrect lab test results. The FDA has seen an increase in the number of reported adverse events related to biotin interference with lab tests. us Prateek Saavedra MD LAB BLOOD ORDERABLES Final Resul t Performing Organization Address [facility] Co de Phone Number [facility] [address] [place] [address] * Comprehensive metabolic panel (01/16/2025 6:36 PM EST) [facility] Sodium 141 136 - 145 meq/L 01/16/2025 7:28 PM EST [facility] Potassium 3.5 3.5 - 5.1 meq/L 01/16/2025 7:28 PM EST [facility] Chloride 106 98 - 107 meq/L 01/16/2025 7:28 PM EST [facility] CO2 26 21 - 32 meq/L 01/16/2025 7:28 PM EST [facility] Calcium 8.7 8.5 - 10.1 mg/dL 01/16/2025 7:28 PM EST [facility] Glucose 95 74 - 100 mg/dL 01/16/2025 7:28 PM [facility] BUN 12 7 - 18 mg/dL 01/16/2025 7:28 PM [facility] Creatinine 0.88 0.55 - 1.02 mg/dL 01/16/2025 7:28 PM [facility] Albumin 3.8 3.4 - 5.0 g/dL 01/16/2025 7:28 PM [facility] Alkaline Phosphatase 55 50 - 136 U/L 01/16/2025 7:28 PM [facility] ALT 24 12 - 78 U/L 01/16/2025 7:28 PM [facility] AST 18 15 - 37 U/L 01/16/2025 7:28 PM [facility] Total Bilirubin 0.3 0.2 - 1.0 mg/dL 01/16/2025 7:28 PM [facility] Protein, Total 7.3 6.4 - 8.2 gm/dL 01/16/2025 7:28 PM [facility] Anion Gap 13 01/16/2025 7:28 PM [facility] Globulin 3.5 0.4 - 4.9 g/dL 01/16/2025 7:28 PM [facility] Osmolality Calc 280.8 mOsm/kg 7:28 PM [facility] eGFR (mL/min/1.73m2) >60 >=60 mL/min/1.7 3m2 01/16/2025 7:28 PM [facility] Comment:ESTIMATED GFR IS NOT ACCURATE CREATININE CLEARANCE IN PREDICTING GLOMERULAR FILTRATION RATE. ESTIMATED GFR IS NOT APPLICABLE FOR DIALYSIS PATIENTS. Blood Venipuncture / Unknown 01/16/2025 6:36 PM EST 01/16/2025 6:51 PM EST us Prateek Saavedra MD LAB BLOOD ORDERABLES Final Resul t [facility] [address] [place] [address] * ECG 12 lead (01/16/2025 6:11 PM EST) VENTRICULAR RATE EKG/MIN 93 BPM GE MUSE ATRIAL RATE (MCT) 93 BPM GE MUSE OK Interval 140 ms GE MUSE QRS-INTERVAL (MSEC) 78 ms GE MUSE QT Interval 348 ms GE MUSE QTC Interval 432 ms GE MUSE P [place] 80 degrees GE MUSE R AXIS (MCT) 87 degrees GE MUSE T Wave [place] 67 degrees GE MUSE [place] Diagnosis Normal sinus rhythm with sinus arrhythmia Normal ECG No previous ECGs available Confirmed by Scarlett PCAE SUZANNE ([id number]) on 01/21/2025 5:32:41 PM GE MUSE 01/16/2025 6:11 PM EST 01/21/2025 5:32 PM EST Prateek Saavedra MD ECG ORDERABLES Final Result GE MUSE * EKG-SCANNED (01/16/2025) Narrative 01/16/2025 Ordered by an unspecified provider. us Default Scanning Provider SCAN ORDERS Final Result from Last 3 Months Insurance [facility] Care Teams Community Theater Actor Relationship Specialty Start Date End Date Daja Gallagher, UTILITY REPAIRER [address] [place] [address] PCP - General Nurse Practitioner 01/28/25
== END 2025-02-17 23:59 | disposition home or self-care (01) ==
LOC: RT 14:25
PROVIDERS: PCP Nurse Practitioner Family; Visit Provider Nurse Practitioner
DX: R00.0 Tachycardia, unspecified (principal); R42 Dizziness and giddiness; R00.2 Palpitations
CPT/HCPCS: 93270

== ENCOUNTER 2025-02-18 08:45 | Outpatient (CLI) | payer BC, SELFPAY ==
--- OUTSIDE RECORDS SUMMARY | 2025-01-16 18:07 | XMS_ITS | Encounter Summary ---
Author Organization [facility] ([place], [place], [place], [place], [place]) Address [address] [place] [address] Care Team Providers Care Preschool Teacher Name Role Phone [facility], Find-A-Doc Primary Care Provider Reason for Visit * Reason Comments Tachycardia Encounter Details Date Type Department Care Team (Late st Contact Info) Description 01/16/2025 6:07 PM EST - 01/16/2025 8:59 PM EST Emergency [facility] Emergency Department [address] [place] [address] Prateek Saavedra MD [address] [place] [address] [phone] Antonio Orr MD [address] [place] [address] [phone] Palpitations (Primary Dx) Discharge Disposition: Home or Self Care Social History Tobacco Use Types Packs/Day Years Used Date Smoking Tobacco: Never Smokeless Tobacco: Never Tobacco Cessation:Counseling Given: Not Answered Alcohol Use Standard Drinks/Week Comments Never 0 (1 standard drink = 0.6 oz pur e alcohol) Comments Unknown Sex and Gender Information Value Date Recorded Sex Assigned at Not on file Legal Sex Female 5:05 PM JD EDWARDS DEVELOPER Gender Identity Not on file Sexual Orientation Not on file documented as of this encounter Last Filed Vital Signs Vital Sign Reading Time Taken Comments Blood Pressure 123/72 01/16/2025 7:50 PM EST Pulse 86 01/16/2025 7:50 PM EST Temperature 37.1 C (98.8 F) 01/16/2025 6:16 PM EST Respiratory Rate 20 01/16/2025 7:50 PM EST Oxygen Saturation 100% 01/16/2025 7:50 PM EST Inhaled Oxygen Concentration - - Weight 54.4 kg (120 lb) 01/16/2025 6:16 PM EST Height 167.6 cm (5' 6 ) 01/16/2025 6:16 PM EST Body Mass Index 19.37 01/16/2025 6:16 PM EST documented in this encounter Functional Status * Homicidal Thoughts Question Answer Date of Assessment Author Does patient have homicidal thoughts? No 6:14 PM JD EDWARDS DEVELOPER Santino Betancur * Tidal Volume Answer Date of Assessment Author 350 01/16/2025 6:16 PM Santino Hoover * Prior Psychiatric Event Question Answer Date of Assessment Author Has patient had a prior psyc hiatric hospitalization or mental health admission? No 01/16/2025 6:14 PM JD EDWARDS DEVELOPER Santino Betancur * Shock Index Answer Date of Assessment Author 0.7 01/16/2025 7:50 PM JD EDWARDS DEVELOPER Hardeep Michele * Oxygen Therapy Question Answer Date of Assessment Author SpO2 100 01/16/2025 7:50 PM JD EDWARDS DEVELOPER Hardeep Paul * Mobility Question Answer Date of Assessment Author VTE Risk Score 3 01/16/2025 8:01 PM JD EDWARDS DEVELOPER Vinayak mott, User * Pain Assessment Timer Question Answer Date of Assessment Author Restart Pain Assessment Timer Yes 01/16/2025 6:11 PM Santino Hoover * Suicide Risk Level Answer Date of Assessment Author No Risk 01/16/2025 6:14 PM Santino Hoover * [facility] Fall Risk Assessment Question Answer Date of Assessment Author History of falls in last 3 m [facility], including since admission 0 01/16/2025 6:14 PM JD EDWARDS DEVELOPER Agatha Betancur Confusion or Disorientation 0 01/16/2025 6: 14 PM Santino Hoover Intoxication or Sedation 0 01/16/2025 6:14 PM Santino Hoover Impaired Gait 0 01/16/2025 6:14 PM Santino Saha Uses Mobility Assist Device 0 01/16/2025 6: 14 PM Santino Hoover Altered Elimination 0 01/16/2025 6:14 PM CS T Santino Betancur Score 0 01/16/2025 6:14 PM Santino Brewer Fall Score 3 or Greater No 01/16/2025 6:14 P M Santino Hoover * Basic Safety Measures Answer Date of Assessment Author [place] patient to surroundings;Hourly rounding 1 03/18/2024 6:14 PM Santino Hoover * Oxygen Therapy Question Answer Date of Assessment Author O2 Device Not on O2 01/16/2025 6:35 PM Charlee Naqvi, PATRICIA * Height and Weight Question Answer Date of Assessment Author Height 66 01/16/2025 6:16 PM Santino Brewer Weight 1920 01/16/2025 6:16 PM Santino Brewer BMI (Calculated) 19.4 01/16/2025 6:16 PM Santino Bustos * Vitals Question Answer Date of Assessment Author BP 123/72 01/16/2025 7:50 PM Hardeep Cox Temp 98.8 01/16/2025 6:16 PM Santino Brewer Temp src Oral 01/16/2025 6:16 PM Santino Brewer Pulse 86 01/16/2025 7:50 PM Hardeep Cox Resp 20 01/16/2025 7:50 PM Hardeep Cox Heart Rate Source Monitor/Pulse Ox 01/16/2025 6:16 PM Santino Hoover BP Location Right arm 01/16/2025 6:16 PM Santino Brewer BP Method Automatic 01/16/2025 6:16 PM Santino Brewer MAP (mmHg) 92 01/16/2025 7:50 PM Hardeep Cox Patient Position Sitting 01/16/2025 6:16 PM Santino Bustos * Comfort and Environment Interventions Question Answer Date of Assessment Author Comfort/Safety Rounds (5 P's) 4 P's addressed -- ED Only 01/16/2025 6:22 PM Charlee Naqvi, PATRICIA * Sepsis Huddle Question Answer Date of Assessment Author Screen Outcome Not treating for sepsis 01/16/2025 6:13 PM Santino Hoover * Airway Question Answer Date of Assessment Author Airway (WDL) WDL 01/16/2025 6:22 PM Charlee Naqvi RN * Breathing Question Answer Date of Assessment Author Breathing (WDL) WD 01/16/2025 6:22 PM JD EDWARDS DEVELOPER Charlee Medina RN * Circulation Question Answer Date of Assessment Author Circulation (WD) WD 01/16/2025 6:22 PM Charlee Naqvi RN * Disability Question Answer Date of Assessment Author Eye Opening 4 01/16/2025 6:22 PM Charlee Naqvi RN Best Motor Response 6 01/16/2025 6:22 PM Charlee Ford RN Best Verbal Response 5 01/16/2025 6:22 PM Charlee Marshall RN [place] Coma Scale Score 15 01/16/2025 6:22 PM Charlee Naqvi RN Disability (WD) WD 01/16/2025 6:22 PM JD EDWARDS DEVELOPER Charlee Prasad RN * Restart Vitals Timer Answer Date of Assessment Author Yes 01/16/2025 7:50 PM JD EDWARDS DEVELOPER Hardeep Michele * Pain Assessment Question Answer Date of Assessment Author Pain Score 0-No pain 01/16/2025 6:11 PM Santino Brewer Response to Interventions Not changed 01/16/2025 6:11 PM Santino Hoover Pain Assessment Scale 0-10 01/16/2025 6:11 PM Santino Hoover * Pain Assessment Question Answer Date of Assessment Author Opioid Sedation Level (POSS) 1 - Awake and Alert 01/16 6:16 PM Santino Hoover * Sepsis Screening Question Answer Date of Assessment Author Is there a suspected infection? No 01/16/2025 6:13 PM Santino Hoover Are there risk factors of infection present/new? No risk factors for infection 01/16/2025 6:13 PM Santino Hoover Sepsis Escalation Criteria No criteria met 01/16/2025 6:13 PM Santino Hoover * Cardiac Question Answer Date of Assessment Author Cardiac Rhythm Sinus tachycardia 01/16/2025 6:11 PM Charlee Ford RN Cardiac Regularity Regular 01/16/2025 6:11 PM Charlee Naqvi RN Bedside Deputy Sheriff Generalist On Yes 01/16/2025 6:1 1 PM Charlee Naqvi RN Bedside Cardiac Audible Yes 01/16/2025 6:11 P M Charlee Naqvi RN Bedside Cardiac Alarms Set Yes 01/16/2025 6:1 1 PM Charlee Naqvi RN Cardiac (WDL) X 01/16/2025 6:11 PM Charlee Tracy RN * [place] Suicide Severity Rating Screening Question Answer Date of Assessment Author 1. Have you wished you were or wished you could go to sleep and not wake up? No 01/16/2025 6:14 PM Santino Hoover 2. Have you actually had any thoughts about killing yourself? No 01/16/2025 6:14 PM Santino Hoover 6. Have you done anything, s tarted to do anything, or prepared to do anything to end your life? No 01/16/2025 6:14 PM Santino Hoover * Homicidal Thoughts Question Answer Date of Assessment Author Does patient have homicidal thoughts? No 6:14 PM Santino Hoover * Prior Psychiatric Event Question Answer Date of Assessment Author Has patient had a prior psyc hiatric hospitalization or mental health admission? No 01/16/2025 6:14 PM Santino Hoover * Oxygen Therapy Question Answer Date of Assessment Author SpO2 100 01/16/2025 7:50 PM Hardeep Cox * Suicide Risk Level Answer Date of Assessment Author No Risk 01/16/2025 6:14 PM Santino Hoover * Basic Safety Measures Answer Date of Assessment Author [place] patient to surroundings;Hourly rounding 1 03/18/2024 6:14 PM Santino Hoover * Height and Weight Question Answer Date of Assessment Author BMI (Calculated) 19.4 01/16/2025 6:16 PM JD EDWARDS DEVELOPER Santino Barrera * Vitals Question Answer Date of Assessment Author BP 123/72 01/16/2025 7:50 PM Hardeep Cox Pulse 86 01/16/2025 7:50 PM Hardeep Cox Resp 20 01/16/2025 7:50 PM Hardeep Cox * Airway Question Answer Date of Assessment Author Airway (WDLing) WDL 01/16/2025 6:22 PM Charlee Naqvi RN * Breathing Question Answer Date of Assessment Author Breathing ([facility]) WD 01/16/2025 6:22 PM JD EDWARDS DEVELOPER Charlee Medina RN * Circulation Question Answer Date of Assessment Author Circulation ([facility]) [facility] 01/16/2025 6:22 PM Charlee Naqvi RN * Disability Question Answer Date of Assessment Author Eye Opening 4 01/16/2025 6:22 PM Charlee Naqvi RN Best Motor Response 6 01/16/2025 6:22 PM CS Charlee Chao RN Best Verbal Response 5 01/16/2025 6:22 PM C Charlee Montaño RN [place] Coma Scale Score 15 01/16/2025 6:22 PM Charlee Naqvi RN Disability ([facility]) [facility] 01/16/2025 6:22 PM JD EDWARDS DEVELOPER Charlee Prasad RN * [place] Suicide Severity Rating Screening Question Answer Date of Assessment Author 1. Have you wished you were or wished you could go to sleep and not wake up? No 01/16/2025 6:14 PM Santino Hoover 2. Have you actually had any thoughts about killing yourself? No 01/16/2025 6:14 PM Santino Hoover 6. Have you done anything, s tarted to do anything, or prepared to do anything to end your life? No 01/16/2025 6:14 PM Santino Hoover documented as of this encounter Mental Status * Homicidal Thoughts Question Answer Entry Date Author Does patient have homicidal thoughts? No 6:14 PM Santino Hoover * Tidal Volume Answer Entry Date Author 350 01/16/2025 6:16 PM Santino Hoover * Prior Psychiatric Event Question Answer Entry Date Author Has patient had a prior psyc hiatric hospitalization or mental health admission? No 01/16/2025 6:14 PM Santino Hoover * Shock Index Answer Entry Date Author 0.7 01/16/2025 7:50 PM Hardeep [place] * Oxygen Therapy Question Answer Entry Date Author SpO2 100 01/16/2025 7:50 PM JD EDWARDS DEVELOPER Hardeep Paul * Suicide Risk Level Answer Entry Date Author No Risk 01/16/2025 6:14 PM Santino Hoover * Basic Safety Measures Answer Entry Date Author [place] patient to surroundings;Hourly rounding 1 03/18/2024 6:14 PM Santino Hoover * Oxygen Therapy Question Answer Entry Date Author O2 Device Not on O2 01/16/2025 6:35 PM Charlee Naqvi RN * Height and Weight Question Answer Entry Date Author Height 66 01/16/2025 6:16 PM Santino Brewer Weight 1920 01/16/2025 6:16 PM Santino Brewer BMI (Calculated) 19.4 01/16/2025 6:16 PM Santino Bustos * Vitals Question Answer Entry Date Author BP 123/72 01/16/2025 7:50 PM Hardeep Cox Temp 98.8 01/16/2025 6:16 PM Santino Brewer Temp src Oral 01/16/2025 6:16 PM Santino Brewer Pulse 86 01/16/2025 7:50 PM Hardeep Cox Resp 20 01/16/2025 7:50 PM Hardeep Cox Heart Rate Source Monitor/Pulse Ox 01/16/2025 6:16 PM Santino Hoover BP Location Right arm 01/16/2025 6:16 PM Santino Brewer BP Method Automatic 01/16/2025 6:16 PM Santino Brewer MAP (mmHg) 92 01/16/2025 7:50 PM Hardeep Cox Patient Position Sitting 01/16/2025 6:16 PM Santino Bustos * Airway Question Answer Entry Date Author Airway (L) [facility] 01/16/2025 6:22 PM JD EDWARDS DEVELOPER Charlee Gomez RN * Breathing Question Answer Entry Date Author Breathing ([facility]) [facility] 01/16/2025 6:22 PM JD EDWARDS DEVELOPER Charlee Medina RN * Circulation Question Answer Entry Date Author Circulation ([facility]) [facility] 01/16/2025 6:22 PM Charlee Naqvi RN * Disability Question Answer Entry Date Author Eye Opening 4 01/16/2025 6:22 PM Charlee Naqvi RN Best Motor Response 6 01/16/2025 6:22 PM CS T Charlee Gomez RN Best Verbal Response 5 01/16/2025 6:22 PM Charlee Marshall RN [place] Coma Scale Score 15 01/16/2025 6:22 PM Charlee Naqvi RN Disability (WDL) WDL 01/16/2025 6:22 PM Charlee Gastelum RN * Pain Assessment Question Answer Entry Date Author Pain Score 0-No pain 01/16/2025 6:11 PM Santino Brewer Response to Interventions Not changed 01/16/2025 6:11 PM Santino Hoover Pain Assessment Scale 0-10 01/16/2025 6:11 PM Santino Hoover * Pain Assessment Question Answer Entry Date Author Opioid Sedation Level (POSS) 1 - Awake and Alert 01/16 6:16 PM Santino Hoover * Cardiac Question Answer Entry Date Author Cardiac Rhythm Sinus tachycardia 01/16/2025 6:11 PM Charlee Ford RN Cardiac Regularity Regular 01/16/2025 6:11 PM Charlee Naqvi RN Bedside Deputy Sheriff Generalist On Yes 01/16/2025 6:1 1 PM Charlee Naqvi RN Bedside Cardiac Audible Yes 01/16/2025 6:11 P M Charlee Naqvi RN Bedside Cardiac Alarms Set Yes 01/16/2025 6:1 1 PM Charlee Naqvi RN * [place] Suicide Severity Rating Screening Question Answer Entry Date Author 1. Have you wished you were or wished you could go to sleep and not wake up? No 01/16/2025 6:14 PM Santino Hoover 2. Have you actually had any thoughts about killing yourself? No 01/16/2025 6:14 PM Santino Hoover 6. Have you done anything, s tarted to do anything, or prepared to do anything to end your life? No 01/16/2025 6:14 PM Santino Hoover documented in this encounter Discharge Instructions * Discharge Instructions* Antonio Orr MD - 01/16/2025 8:43 PM EST Please follow-up with Dr. Crabtree with cardiology for palpitations/high heart rate seen in the emergency department, return with any new or worsening symptoms including chest pain shortness of breath fainting or any other new or concerning symptoms. Please follow up with your primary care physician. If you don't have a primary care physician, you can call the Find-a-Doc line at [phone] EDWARDS DEVELOPER * Attachments The following attachments cannot be sent through Care Everywhere. * Palpitations (Citizen Of [place]) documented in this encounter ED Notes * Antonio Orr MD - 01/16/2025 6:30 PM EST Subjective Chief Complaint: Tachycardia Patient reports that her heart rate has been elevated for the last 4 days. She went to [facility] today and was told to come to the emergency department. No chest pain. No dyspnea. No nausea or vomiting. No diarrhea or constipation. No dysuria or urinary frequency. No fevers. She drinks minimal caffeine. Does not use any stimulant medications. Denies illicit drug use. Non- smoker. Said she has been eating and drinking normally. Patient History No past medical history on file. Past Surgical History: Procedure Laterality Date TONSILLECTOMY No family history on file. Social History Tobacco Use Smoking status: Never Smokeless tobacco: Never Substance Use Topics Alcohol use: Never I reviewed the HPI, ROS and PFSH documentation recorded by others in the medical record and supplemented my note as needed. Review of Systems Review of Systems Physical Exam ED Triage Vitals Encounter Vitals Group BP 01/16/251815 128/83 Girls Systolic BP Percentile -- Girls Diastolic BP Percentile -- Boys Systolic BP Percentile -- Boys Diastolic BP Percentile -- Pulse 01/16/25 181 92 Resp 01/16/25 1811 18 Temp 01/16/25 181 98.8 ??F (37.1 ??C) Temp src 01/16/25 181 Oral SpO2 01/16/25 181 100 % Weight 01/16/25 181 54.4 kg (120 lb) Height 01/16/25 181 1.651 m (5' 5 ) Head Circumference -- Peak Flow -- Pain Score 01/16/25 181 Zero Pain Loc -- Pain Education -- Exclude from Growth Chart -- Physical Exam Vitals and nursing note reviewed. Constitutional: Appearance: Normal appearance. HENT: Head: Normocephalic and atraumatic. Mouth/Throat: Mouth: Mucous membranes are moist. Pharynx: Oropharynx is clear. Eyes: Conjunctiva/sclera: Conjunctivae normal. Cardiovascular: Rate and Rhythm: Normal rate and regular rhythm. Pulmonary: Effort: Pulmonary effort is normal. Breath sounds: Normal breath sounds. Abdominal: General: Abdomen is flat. Palpations: Abdomen is soft. Tenderness: There is no abdominal tenderness. Musculoskeletal: General: No deformity or signs of injury. Normal range of motion. Cervical back: Normal range of motion and neck supple. Skin: General: Skin is warm and dry. Capillary Refill: Capillary refill takes less than 2 seconds. Findings: No rash. Neurological: General: No focal deficit present. Mental Status: She is alert and oriented to person, place, and time. Neurological Exam Mental Status Alert. Oriented to person, place, and time. Ortho Exam ED Course & MDM Medications lactated ringers (LR) bolus 1,000 mL (0 mLs intravenous Stopped 01/16/251951) Results for orders placed or performed during the hospital encounter of 01/16/25 COVID/Influenza A+B Antigen Specimen: Nasal Swab Result Value Ref Range SARS-COV/COV 2 ANTIGEN Negative Negative, Invalid INFLUENZA AAG Negative Negative, Invalid INFLUENZA BAG Negative Negative, Invalid Urinalysis, Reflex Microscopic and Culture If Indicated Result Value Ref Range Color, UA Yellow Clarity, UA Hazy Specific Ulysses, UA 1.010 1.001 - 1.030 pH, UA 8.0 (H) 6.0 - 7.5 Leukocytes, UA Trace (A) Negative Nitrite, UA Negative Negative Protein, UA Negative Negative Glucose, UA Negative Negative Ketones, UA Negative Negative Bilirubin, UA Negative Negative Blood, UA Trace (A) Negative Urobilinogen, UA 0.2 mg/dL Normal Specimen Source Urine, Clean Catch Triage Drug Screen, Urine Result Value Ref Range Amphetamine Urine Negative Negative Barbiturate Screen Negative Negative Benzodiazepine Screen Negative Negative Cocaine (Metab.) Screen Negative Negative MDMA Ur Negative Negative Methadone Screen Negative Negative Opiate Screen Negative Negative Phencyclidine Screen Negative Negative Tricyclic Screen Negative Negative Tetrahydrocannabinol Negative Negative Methamphetamine Screen Negative Negative Oxycodone Screen Negative Negative Screen, urine Result Value Ref Range Preg Test, Ur Negative Negative, Inconclusive CBC with Auto Diff Result Value Ref Range WBC 7.7 4.0 - 10.0 K/??L RBC 4.29 3.93 - 5.22 M/??L Hemoglobin 13.2 11.2 - 15.7 GM/DL Hematocrit 38.9 34.1 - 44.9 % MCV 91 79 - 95 fL MCH 30.8 25.6 - 32.2 pg MCHC 33.9 32.3 - 36.5 GM/DL RDW 11.9 11.5 - 14.5 % Platelets 280 182 - 369 K/CU MM MPV 9.9 9.4 - 12.4 fL Nucleated Red Blood Cell 0.0 0 - 0.2 % % Neutros 53 42 - 75 % % Lymphs 35 19 - 52 % % Monos 8 5 - 13 % % Eos 2.2 1.0 - 7.0 % % Baso 1 0 - 2 % NRBC Absolute <0.01 0 - 0.012 K/ul # Neutros 4.10 1.56 - 6.13 K/??L # Lymphs 2.71 K/??L # Monos 0.60 0.24 - 0.82 K/??L # Eos 0.17 0.00 - 6.00 K/??L # Baso 0.06 0.01 - 0.08 K/??L % Imm Grans 0.70 % # IG 0.05 0.00 - 0.05 K/uL Comprehensive metabolic panel Result Value Ref Range Sodium 141 136 - 145 meq/L Potassium 3.5 3.5 - 5.1 meq/L Chloride 106 98 - 107 meq/L CO2 26 21 - 32 meq/L Calcium 8.7 8.5 - 10.1 mg/dL Glucose 95 74 - 100 mg/dL BUN 12 7 - 18 mg/dL Creatinine 0.88 0.55 - 1.02 mg/dL Albumin 3.8 3.4 - 5.0 g/dL Alkaline Phosphatase 55 50 - 136 U/L ALT 24 12 - 78 U/L AST 18 15 - 37 U/L Total Bilirubin 0.3 0.2 - 1.0 mg/dL Protein, Total 7.3 6.4 - 8.2 gm/dL Anion Gap 13 11 - 21 Globulin 3.5 0.4 - 4.9 g/dL Osmolality Calc 280.8 mOsm/kg eGFR (mL/min/1.73m2) >60 >=60 mL/min/1.73m2 Urinalysis Microscopic Only Result Value Ref Range WBC, UA 0-5 None Seen, 0-5 /HPF RBC, UA 0-2 None Seen, 0-2 /HPF Bacteria, UA Trace (A) None Seen SQUAMOUS EPITHELIAL 0-2 (A) None Seen /HPF TSH Result Value Ref Range TSH 2.191 0.358 - 3.740 uIU/mL XR chest 2 views (Results Pending) ED Course as of 01/16/252052Jan 16, 20251813 ECG at 1811, independently interpreted by me, shows normal sinus rhythm at 95. Otherwise normal intervals and durations. No acute ischemic changes. Normal ECG. [RH] 183 Patient's care was transferred to the oncoming provider, Saeid Orr, pending the rest of the workup. Patient was updated on all results prior to transition. Electronically signed by Prateek Saavedra MD 01/16/25 6:32 PM [RH] 2037 Patient handed off to me at shift change by Dr. Saavedra who states that the patient has been tachycardic for 2 to 3 days, but has not been tachycardic here, was [facility] by [facility] pending laboratory workup at this time. [NF] 2038 Urine drug screen is negative, TSH within normal limits, screen is negative, urinalysis shows 0-2 squames, trace bacteriuria and trace leukocyte esterase, negative for nitrite, unlikely to be urinary tract infection, will ask patient about symptoms. [NF] 2038 COVID-19 and influenza are negative, CBC nonactionable, metabolic panel nonactionable. [NF] 2038 Plain film of the chest reviewed and interpreted by me in the emergency department independentof radiologist and does not show any obvious lobar pneumonia or pneumothorax. [NF] 2048 Patient not having dysuria. Discharging the patient with cardiology follow- up. Patient amenable to plan [NF] 2052 When I reassessed the patient patient reiterated that she is also not having any chest pain orshortness of breath. [NF] ED Course User Index [NF] Antonio Orr MD [RH] Prateek Saavedra MD Procedures Medical Decision Making Amount and/or Complexity of Data Reviewed Labs: ordered. Radiology: ordered. ECG/medicine tests: ordered. Patient reports that her heart rate has been elevated for the last 4 days. She went to [facility] today and was told to come to the emergency department. No chest pain. No dyspnea. No nausea or vomiting. No diarrhea or constipation. No dysuria or urinary frequency. No fevers. She drinks minimal caffeine. Does not use any stimulant medications. Denies illicit drug use. Non- smoker. Said she has been eating and drinking normally. Differential diagnosis includes life-threatening pathology like arrhythmia, electrolyte abnormality, dehydration, postural orthostatic tachycardia syndrome, thyroid abnormality, ACS, other acute pathology considered. Further medical decision making per ED course. Assessment & Plan Clinical Impression Diagnosis Comment Added By Time Added Palpitations Antonio Orr MD 01/16/2025 8:43 PM Disposition Discharge [1] - 01/16/2025 8:43 PM New Prescriptions No medications on file Contact information for follow-up Robert Crabtree MD Specialty: Cardiology, Radiology [address] [place] [phone] Next Steps: Schedule an appointment as soon as possible for a visit in 3 day(s) [facility] Find-a-Doc Relationship: PCP - [facility] Find-a-Doc [facility] [id number] Next Steps: Schedule an appointment as soon as possible for a visit in 1 week(s) Electronically Signed By Antonio Orr MD 01/16/252052 EDWARDS DEVELOPER * Santino Betancur - 01/16/2025 6:10 PM EST Pt arrived POV. She states she has had a fast heart rate since Sunday and feeling weak. She wentto [facility] and was sent to ER. Denies any pain. EDWARDS DEVELOPER documented in this encounter Plan of Treatment Not on file documented as of this encounter Procedures Procedure Name Priority Date/Time Associated Diagnosis Comments XR CHEST PA AND LATERAL STAT 01/16/2025 7:12 PM EST URINALYSIS, REFLEX MICROSCOPIC AND CULTURE IF INDICATED STAT 01/16/2025 6:47 PM EST TRIAGE DRUG SCREEN, URINE STAT 01/16/2025 6:47 PM EST URINALYSIS MICROSCOPIC STAT 6:47 PM EST SCREEN, URINE STAT 01/16/2025 6:47 PM EST COVID19 SARS-COV/COV-2 INFLUENZA A/B AG STAT 01/16/2025 6:36 PM EST CBC W/ AUTO DIFF STAT 01/16/2025 6:36 PM EST TSH Add-On 01/16/2025 6:36 PM EST COMPREHENSIVE METABOLIC PANEL STAT 01/16/2025 6:36 PM EST [id number] 12-LEAD STAT 01/16/2025 6:11 PM EST EKG-SCANNED 01/16/2025 documented in this encounter Results * XR chest 2 views (01/16/2025 7:12 PM EST) Anatomical Region Laterality Modality Chest X-Ray 01/18/2025 6:17 AM EST Impressions 01/18/2025 6:19 AM EST Unremarkable two-view chest. Images reviewed, interpreted, dictated and electronically signed by Collin Leroy MD Voice lease operator technology ([employer]) is used for the dictation of this note and sound-alike words might be erroneously placed despite reviewing this note for accuracy. Errors in dictation may reflect use of voice recognition software and not all errors in lease operator may have been detected prior to signing. Narrative 01/18/2025 6:19 AM EST TWO-VIEW CHEST HISTORY: Tachycardia. COMPARISON: None FINDINGS: Two views of the chest were performed. The heart is normal in size. The mediastinal and hilar contours are unremarkable. The lungs are clear. There is no evidence of pneumonia or edema. There are no pleural effusions. The bony thorax demonstrates no abnormalities. Procedure Note Collin Leroy MD - 01/18/2025 TWO-VIEW CHEST HISTORY: Tachycardia. COMPARISON: None FINDINGS: Two views of the chest were performed. The heart is normal in size. The mediastinal and hilar contours are unremarkable. The lungs are clear. There is no evidence of pneumonia or edema. There are no pleural effusions. The bony thorax demonstrates no abnormalities. IMPRESSION: Unremarkable two-view chest. Images reviewed, interpreted, dictated and electronically signed by Collin Leroy MD Voice lease operator technology ([employer]) is used for the dictation of this note and sound-alike words might be erroneously placed despite reviewing this note for accuracy. Errors in dictation may reflect use of voice recognition software and not all errors in lease operator may have been detected prior to signing. us Prateek Saavedra MD IMG DIAGNOSTIC IMAGING ORDERABLE S Final Result * (ABNORMAL) Urinalysis Microscopic Only (01/16/2025 6:47 PM EST) [facility] WBC, UA 0-5 None Seen, 0-5 /HPF 01/16/2025 7:03 PM EST [facility] RBC, UA 0-2 None Seen, 0-2 /HPF 01/16/2025 7:03 PM EST [facility] Bacteria, UA Trace(A) None Seen 01/16/2025 7:03 PM EST [facility] SQUAMOUS EPITHELIAL 0-2(A) None Seen /HPF 01/16/2025 7:03 PM [facility] Urine URINE SPECIMEN COLLECTION, CLEAN CATCH / Unknown 01/16/2025 6:47 PM EST 01/16/2025 6:53 PM EST us Prateek Saavedra MD URINE ORDERABLES Final Result [facility] [address] [place] [address] * Screen, urine (01/16/2025 6:47 PM EST) Pathologist [facility] Preg Test, Ur Negative Negative, Inconclusive 01/16/2025 7:03 PM EST [facility] Urine 01/16/2025 6:47 PM EST 01/16/2025 6:52 PM EST Prateek Saavedra MD URINE ORDERABLES Final Result [facility] [address] [place] [address], [facility] [phone] * Triage Drug Screen, Urine (01/16/2025 6:47 PM EST) Amphetamine Urine Negative Negative 025 7:04 PM EST [facility] Barbiturate Screen Negative Negative 2024 7:04 PM [facility] Benzodiazepine Screen Negative Negative 7:04 PM [facility] Cocaine (Metab.) Screen Negative Negative 1 03/18/2024 7:04 PM [facility] MDMA Ur Negative Negative 01/16/2025 7:04 PM [facility] Methadone Screen Negative Negative 01/17/20 7:04 PM [facility] Opiate Screen Negative Negative 01/16/2025 7:04 PM [facility] Phencyclidine Screen Negative Negative 12/28 7:04 PM [facility] Tricyclic Screen Negative Negative 01/17/20 7:04 PM [facility] Tetrahydrocannabinol Negative Negative 12/28 7:04 PM [facility] Methamphetamine Screen Negative Negative 7:04 PM [facility] Oxycodone Screen Negative Negative 01/17/20 7:04 PM [facility] Urine 01/16/2025 6:47 PM EST 01/16/2025 6:52 PM EST Narrative [facility] - 01/16/2025 7:04 PM EST This urine drug of abuse screen is for medical purposes only. A positive result is a preliminary analytical result which has not been confirmed. Drug Cutoff Limits are: Amp/Methamp: 1000 ng/mL Barbiturates: 200 ng/mL Benzodiazepines: 200 ng/mL Cannabinoids: 50 ng/mL Cocaine Metabolites: 300 ng/mL Fentanyl: 1.0 ng/mL Opiates: 300 ng/mL us Prateek Saavedra MD URINE ORDERABLES Final Result [facility] [address] [place] [address], [facility] [phone] * (ABNORMAL) Urinalysis, Reflex Microscopic and Culture If Indicated (01/16/2025 6:47 PM EST) Color, UA Yellow 01/16/2025 7:02 PM [facility] Clarity, UA Hazy 01/16/2025 7:02 PM [facility] Specific Ulysses, UA 1.010 1.001 - 1.030 01/16/2025 7:02 PM [facility] pH, UA 8.0(H) 6.0 - 7.5 01/16/2025 7:02 PM [facility] Leukocytes, UA Trace(A) Negative 01/16/2025 7:02 PM [facility] Nitrite, UA Negative Negative 01/16/2025 7:02 PM [facility] Protein, UA Negative Negative 01/16/2025 7:02 PM [facility] Glucose, UA Negative Negative 01/16/2025 7:02 PM [facility] Ketones, UA Negative Negative 01/16/2025 7:02 PM [facility] Bilirubin, UA Negative Negative 01/16/2025 7:02 PM [facility] Blood, UA Trace(A) Negative 01/16/2025 7:02 PM [facility] Urobilinogen, UA 0.2 mg/dL Normal 01/16/2025 7:02 PM [facility] Specimen Source Urine, Clean Catch 01/16/2025 7:02 PM [facility] Urine URINE SPECIMEN COLLECTION, CLEAN CATCH / Unknown 01/16/2025 6:47 PM EST 01/16/2025 6:53 PM EST us Prateek Saavedra MD URINE ORDERABLES Final Result Performing Organization Address City/[facility]/ZIP Co de Phone Number [facility] [address] [place] [address] * TSH (01/16/2025 6:36 PM EST) Pathologist [facility] TSH 2.191 0.358 - 3.740 uIU/mL 01/16/2025 7:55 PM EST [facility] Blood Venipuncture / Unknown 01/16/2025 6:36 PM EST 01/16/2025 6:51 PM EST Narrative [facility] - 01/16/2025 7:55 PM EST Biotin supplements can cause clinically significant incorrect lab test results. The FDA has seen an increase in the number of reported adverse events related to biotin interference with lab tests. Prateek Saavedra MD LAB BLOOD ORDERABLES Final Resul t Performing Organization Address City/[facility] Co de Phone Number [facility] [address] [place] [address] * COVID/Influenza A+B Antigen (01/16/2025 6:36 PM EST) [facility] SARS-COV/COV 2 ANTIGEN Negative Negative, Invalid 01/16/2025 7:42 PM EST [facility] INFLUENZA AAG Negative Negative, Invalid 01/16/2025 7:42 PM EST [facility] INFLUENZA BAG Negative Negative, Invalid 01/16/2025 7:42 PM EST [facility] Nasal Swab (Nasal) 01/16/2025 6:36 PM EST 01/16/2025 6:51 PM EST Narrative [facility] - 01/16/2025 7:42 PM EST The VIPTALON Veritor System for Rapid Detection of SARS-CoV-2 & Flu A+B is only for in vitro diagnostic use under the Food and Drug Administration's Emergency Use Authorization (EUA). This product has not been FDA cleared or approved. Results should be correlated with the clinical history, epidemiological data, and other data available to the clinician evaluating the patient. SARS-CoV-2, influenza A, and influenza B viral antigens are generally detectable in anterior nasal swab specimens during the acute phase of infection. Positive results indicate the presence of viral antigens, but clinical correlation with patient history and other diagnostic information is necessary to determine infection status. Negative results are presumptive, do not rule out SARS-CoV-2 infection, and should not be used as the sole basis for treatment or patient management decisions, including infection control measures such as isolating from others and wearing masks. Serial testing should be performed in individuals with negative results at least twice over three days (with 48 hours between tests) for symptomatic individuals. Confirmation with a molecular assay may be necessary if there is a high likelihood of SARS-CoV-2 infection. All negative influenza A and B test results are presumptive and it is recommended that these results be confirmed by an FDA-cleared influenza A and B molecular assay. Negative results do not preclude influenza virus infection and should not be used as the sole basis for treatment or other management decisions. Prateek Saavedra MD MICROBIOLOGY - GENERAL ORDERABLE S Final Result [facility] [address] [place] [address], [facility] [phone] * Comprehensive metabolic panel (01/16/2025 6:36 PM EST) Sodium 141 136 - 145 meq/L 01/16/2025 7:28 PM EST [facility] Potassium 3.5 3.5 - 5.1 meq/L 01/16/2025 7:28 PM [facility] Chloride 106 98 - 107 meq/L 01/16/2025 7:28 PM [facility] CO2 26 21 - 32 meq/L 01/16/2025 7:28 PM [facility] Calcium 8.7 8.5 - 10.1 mg/dL 01/16/2025 7:28 PM [facility] Glucose 95 74 - 100 mg/dL 01/16/2025 7:28 PM [facility] BUN 12 7 - 18 mg/dL 01/16/2025 7:28 PM [facility] Creatinine 0.88 0.55 - 1.02 mg/dL 01/16/2025 7:28 PM [facility] Albumin 3.8 3.4 - 5.0 g/dL 01/16/2025 7:28 PM [facility] Alkaline Phosphatase 55 50 - 136 U/L 01/16/2025 7:28 PM [facility] ALT 24 12 - 78 U/L 01/16/2025 7:28 PM [facility] AST 18 15 - 37 U/L 01/16/2025 7:28 PM [facility] Total Bilirubin 0.3 0.2 - 1.0 mg/dL 01/16/2025 7:28 PM [facility] Protein, Total 7.3 6.4 - 8.2 gm/dL 01/16/2025 7:28 PM [facility] Anion Gap 13 - 01/16/2025 7:28 PM [facility] Globulin 3.5 0.4 - 4.9 g/dL 01/16/2025 7:28 PM [facility] Osmolality Calc 280.8 mOsm/kg 7:28 PM [facility] eGFR (mL/min/1.73m2) >60 >=60 mL/min/1.7 3m2 01/16/2025 7:28 PM [facility] Comment:ESTIMATED GFR IS NOT ACCURATE CREATININE CLEARANCE IN PREDICTING GLOMERULAR FILTRATION RATE. ESTIMATED GFR IS NOT APPLICABLE FOR DIALYSIS PATIENTS. Blood Venipuncture / Unknown 01/16/2025 6:36 PM EST 01/16/2025 6:51 PM EST us Prateek Saavedra MD LAB BLOOD ORDERABLES Final Resul t [facility] [address] [place] [address], [facility] [phone] * CBC with Auto Diff (01/16/2025 6:36 PM EST) WBC 7.7 4.0 - 10.0 K/ L 01/16/2025 7:02 PM [facility] RBC 4.29 3.93 - 5.22 M/ L 01/16/2025 7:02 PM [facility] Hemoglobin 13.2 11.2 - 15.7 GM/DL 01/16/2025 7:02 PM [facility] Hematocrit 38.9 34.1 - 44.9 % 01/16/2025 7:02 PM [facility] MCV 91 79 - 95 fL 01/16/2025 7:02 PM [facility] MCH 30.8 25.6 - 32.2 pg 01/16/2025 7:02 PM [facility] MCHC 33.9 32.3 - 36.5 GM/DL 01/16/2025 7:02 PM [facility] RDW 11.9 11.5 - 14.5 % 01/16/2025 7:02 PM [facility] Platelets 280 182 - 369 K/CU MM 01/16/2025 7:02 PM [facility] MPV 9.9 9.4 - 12.4 fL 01/16/2025 7:02 PM [facility] Nucleated Red Blood Cell 0.0 0 - 0.2 % 01/16/2025 7:02 PM [facility] % Neutros 53 42 - 75 % 01/16/2025 7:02 PM [facility] % Lymphs 35 19 - 52 % 01/16/2025 7:02 PM [facility] % Monos 8 5 - 13 % 01/16/2025 7:02 PM [facility] % Eos 2.2 1.0 - 7.0 % 01/16/2025 7:02 PM [facility] % Baso 1 0 - 2 % 01/16/2025 7:02 PM [facility] NRBC Absolute <0.01 0 - 0.012 K/ul 01/16/2025 7:02 PM [facility] # Neutros 4.10 1.56 - 6.13 K/ L 01/16/2025 7:02 PM [facility] # Lymphs 2.71 K/ L 01/16/2025 7:02 PM EST [facility] # Monos 0.60 0.24 - 0.82 K/ L 01/16/2025 7:02 PM EST [facility] # Eos 0.17 0.00 - 6.00 K/ L 01/16/2025 7:02 PM EST [facility] # Baso 0.06 0.01 - 0.08 K/ L 01/16/2025 7:02 PM EST [facility] % Imm Grans 0.70 % 01/16/2025 7:02 PM EST [facility] # IG 0.05 0.00 - 0.05 K/uL 01/16/2025 7:02 PM [facility] Blood Venipuncture / Unknown 01/16/2025 6:36 PM EST 01/16/2025 6:51 PM EST Narrative [facility] - 01/16/2025 7:02 PM EST When CBC w/ Auto Diff is ordered the lab will add a Manual Differential as a quality check at no additional charge if: Lymphocytes greater than seventy five percent with normal or increased WBC Monocytes greater than Fifteen percent Basophil greater than four percent Bands >10% or several immature myeloids are seen on scan Blast? Flag noted Atypical Lymph flag noted us Prateek Saavedra MD LAB BLOOD ORDERABLES Final Resul t Performing Organization Address City/State/[facility] Co de Phone Number [facility] [address] [place] [address] * ECG 12 lead (01/16/2025 6:11 PM EST) VENTRICULAR RATE EKG/MIN 93 BPM GE MUSE ATRIAL RATE (MCT) 93 BPM GE MUSE [place] Interval 140 ms GE MUSE QRS-INTERVAL (MSEC) 78 ms GE MUSE QT Interval 348 ms GE MUSE QTC Interval 432 ms GE MUSE P [place] 80 degrees GE MUSE R AXIS (MCT) 87 degrees GE MUSE T Wave [place] 67 degrees GE MUSE [place] Diagnosis Normal sinus rhythm with sinus arrhythmia Normal ECG No previous ECGs available Confirmed by Scarlett PACE SUZANNE ([id number]) on 01/21/2025 5:32:41 PM GE MUSE 01/16/2025 6:11 PM EST 01/21/2025 5:32 PM EST us Prateek Saavedra MD ECG ORDERABLES Final Result GE MUSE * EKG-SCANNED (01/16/2025) Narrative 01/16/2025 Ordered by an unspecified provider. us Default Scanning Provider SCAN ORDERS Final Result documented in this encounter Visit Diagnoses Diagnosis Palpitations- Primary documented in this encounter Administered Medications Inactive Administered Medications - up to 3 most recent administrations Medication Order MAR Action Action Date Dose Rate Site lactated ringers (LR) bolus 1,000 mL 1,000 mL Once, intravenous, Administer over 1 Hours, On Sun01/16/25 at 1835, For 1 dose New Bag 01/16/2025 6:37 PM EST 1,000 mLs 1000 mL/hr documented in this encounter Active and Recently Administered Medications Times are shown in EST. Scheduled Medication Order 01/14/2025 01/15/2025 01/16/2025 lactated ringers (LR) bolus 1,000 mL (COMPLETED) 1,000 mL Once, intravenous, Administer over 1 Hours, On Sun01/16/25 at 1835, For 1 dose 183 (New Bag - Prov ider: Charlee Gomez RN)1951 (Stopped - Provider: Hardeep Michele) documented in this encounter Care Teams Preschool Teacher Relationship Specialty Start Date End Date [facility], [facility] [place] [address] PCP - General 01/16/25 01/27/25 documented as of this encounter
--- NOTE | 2025-02-18 08:45 | CA_ITS ---
APPROVED REPORT EXAM: Comprehensive 2D, Doppler, and color-flow Echocardiogram Straw Hat Brim Raiser Operator: JACEY Ann, RVS Ht: 5 ft 5 in Wt: 118lbs BSA: 1.58 BP: 125/75 mmHg Indications: Tachycardia, Dizziness, Palpitations, Fatigue Echo Enhancing Agent Indication: Rule Out Septal Defect Agent(s) / Amount(s) Used: Agitated Saline 20 cc 2D Dimensions Left Atrium 1.96 cm EF AP4 58.60 % GL Strain -29.3 % M-Mode Dimensions RVDd 1.65 cm (0.9-2.6) LA Diam 2.44 cm (1.9-4.0) LVDd 4.35 cm (3.5-5.7) LVDs 2.95 cm (3.5-5.7) IVSd 0.61 cm (0.6-1.1) PWd 0.72 cm (0.6-1.1) EF (Teich) 60.70% EPSs 1.10 cm FS 32.20% EDV (Teich) 85.40 mL TAPSE 2.08 (<1.7) ESV (Teich) 33.60 mL LV Diastology E Decel Time 250 (160-240 msec) E/A Ratio 1.68 MED A' 12.10 cm/s LAT A' 10.60 cm/s Aortic Valve JAYLEEN Index 1.53 cm2/m2 AoV Peak Uvaldo. 113.0 (50-130 cm/s) AO Peak GR. 5.10 mmHg AO Mean GR. 2.70 (<5 mmHg) AO VTI 22.8 (18-25 cm) JAYLEEN (VTI) 2.48 (2.5-4.5 cm2) Mitral Valve MV A Velocity 42.0 (40-130 cm/s) E/A Ratio 1.68 Pulmonary Valve PV Peak Velocity 95.0 (50-150 cm/s) Tricuspid Valve TR P. Velocity 199.00 cm/s RAP Estimate 10.00 mmHg RVSP 25.90 mmHg Left Ventricle The left ventricle is normal size. Left ventricular systolic function is low-normal. There is normal left ventricular wall thickness. There is normal LV segmental wall motion. The left ventricular diastolic function is normal. LVEF is 50% Right Ventricle The right ventricle is normal size. The right ventricular systolic function is normal. Atria The left atrium size is normal. The right atrium size is normal. There is no color Doppler evidence of interatrial shunt. Agitated saline administration demonstrates no evidence of interatrial shunt. Aortic Valve The aortic valve opens well. There is no hemodynamically significant aortic valvular stenosis. No aortic regurgitation is present. Mitral Valve The mitral valve is normal in structure. No evidence of mitral valve stenosis. Trace mitral regurgitation is present. Tricuspid Valve The tricuspid valve leaflets are thin and pliable. Trace tricuspid regurgitation. There is insufficient TR jet to estimate RVSP. Pulmonic Valve The pulmonary valve is grossly normal in structure. Trace pulmonic valve regurgitation is present. Great Vessels The aortic root is normal in size. IVC is normal in size and collapses >50% with inspiration. Pericardium There is no pericardial effusion. Other Information Study Quality: Fair Conclusion Low-normal LV systolic function (LVEF 50%). No significant valvular stenosis or regurgitation. Agitated saline administration demonstrates no evidence of interatrial shunt. Electronically signed by : Lazara Carranza MD 02/18/2025 19:59:21
--- OUTSIDE RECORDS SUMMARY | 2025-02-18 08:46 | XMS_ITS | Referral Summary ---
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 Errors in dictation may reflect use of voice recognition software and not all errors in coal miner may have been detected prior to signing. [...] electronically signed by Collin Leroy MD Voice coal miner technology (Power Scribe) is used for the dictation of this note and sound-alike words might be erroneously placed despite reviewing this note for accuracy. Errors in dictation may reflect use of voice recognition software and not all errors in coal miner may have been detected prior to signing. Prateek Saavedra MD IMG DIAGNOSTIC IMAGING ORDERABLE S Final Result * (ABNORMAL) Urinalysis, Reflex Microscopic and Culture If Indicated (01/16/2025 6:47 PM EST) Color, UA Yellow 01/16/2025 7:02 PM EST [facility] Clarity, UA Hazy 01/16/2025 7:02 PM EST [facility] Specific [place], UA 1.010 1.001 - 1.030 01/16/2025 7:02 PM [facility] pH, UA 8.0(H) 6.0 - 7.5 01/16/2025 7:02 PM [facility] Leukocytes, UA Trace(A) Negative 01/16/2025 7:02 PM [facility] Nitrite, UA Negative Negative 01/16/2025 7:02 PM [facility] Protein, UA Negative Negative 01/16/2025 7:02 PM [facility] Glucose, UA Negative Negative 01/16/2025 7:02 PM [facility] Ketones, UA Negative Negative 01/16/2025 7:02 PM [facility] Bilirubin, UA Negative Negative 01/16/2025 7:02 PM [facility] Blood, UA Trace(A) Negative 01/16/2025 7:02 PM [facility] Urobilinogen, UA 0.2 mg/dL Normal 01/16/2025 7:02 PM [facility] Specimen Source Urine, Clean Catch 01/16/2025 7:02 PM [facility] Urine URINE SPECIMEN COLLECTION, CLEAN CATCH / Unknown 01/16/2025 6:47 PM EST 01/16/2025 6:53 PM EST Prateek Saavedra MD URINE ORDERABLES Final Result [facility] [address] [place] [address] * Triage Drug Screen, Urine (01/16/2025 6:47 PM EST) Amphetamine Urine Negative Negative 025 7:04 PM [facility] Barbiturate Screen Negative Negative 2024 7:04 PM [facility] Benzodiazepine Screen Negative Negative 7:04 PM [facility] Cocaine (Metab.) Screen Negative Negative 1 03/18/2024 7:04 PM [facility] MDMA Ur Negative Negative 01/16/2025 7:04 PM [facility] Methadone Screen Negative Negative 01/17/20 7:04 PM [facility] Opiate Screen Negative Negative 01/16/2025 7:04 PM [facility] Phencyclidine Screen Negative Negative 12/28 7:04 PM [facility] Tricyclic Screen Negative Negative 01/17/20 7:04 PM [facility] Tetrahydrocannabinol Negative Negative 12/28 7:04 PM [facility] Methamphetamine Screen Negative Negative 7:04 PM [facility] Oxycodone Screen Negative Negative 01/17/20 7:04 PM [facility] Urine 01/16/2025 6:47 PM EST 01/16/2025 6:52 PM EST Narrative [facility] - 01/16/2025 7:04 PM EST This [...] Prateek Saavedra MD URINE ORDERABLES Final Result [facility] [address] [place] [address] * (ABNORMAL) Urinalysis Microscopic Only (01/16/2025 6:47 PM EST) WBC, UA 0-5 None Seen, 0-5 /HPF 01/16/2025 7:03 PM [facility] RBC, UA 0-2 None Seen, 0-2 /HPF 01/16/2025 7:03 PM [facility] Bacteria, UA Trace(A) None Seen 01/16/2025 7:03 PM [facility] SQUAMOUS EPITHELIAL 0-2(A) None Seen /HPF 01/16/2025 7:03 PM [facility] Urine URINE SPECIMEN COLLECTION, CLEAN CATCH / Unknown 01/16/2025 6:47 PM EST 01/16/2025 6:53 PM EST us Prateek Saavedra MD URINE ORDERABLES Final Result [facility] [address] [place] [address] * Screen, urine (01/16/2025 6:47 PM EST) Preg Test, Ur Negative Negative, Inconclusive 01/16/2025 7:03 PM EST [facility] Urine 01/16/2025 6:47 PM EST 01/16/2025 6:52 PM EST Prateek Saavedra MD URINE ORDERABLES Final Result [facility] [address] [place] [address] * COVID/Influenza A+B Antigen (01/16/2025 6:36 PM EST) Pathologist [facility] SARS-COV/COV 2 ANTIGEN Negative Negative, Invalid 01/16/2025 7:42 PM EST [facility] INFLUENZA AAG Negative Negative, Invalid 01/16/2025 7:42 PM EST [facility] INFLUENZA BAG Negative Negative, Invalid 01/16/2025 7:42 PM EST [facility] Nasal Swab (Nasal) 01/16/2025 6:36 PM EST 01/16/2025 6:51 PM EST Narrative [facility] - 01/16/2025 7:42 PM EST The [employer] System for Rapid Detection of SARS-CoV-2 & [...] MICROBIOLOGY - GENERAL ORDERABLE S Final Result [facility] [address] [place] [address], [facility] [phone] * CBC with Auto Diff (01/16/2025 6:36 PM EST) WBC 7.7 4.0 - 10.0 K/ L 01/16/2025 7:02 PM [facility] RBC 4.29 3.93 - 5.22 M/ L 01/16/2025 7:02 PM [facility] Hemoglobin 13.2 11.2 - 15.7 GM/DL 01/16/2025 7:02 PM [facility] Hematocrit 38.9 34.1 - 44.9 % 01/16/2025 7:02 PM [facility] MCV 91 79 - 95 fL 01/16/2025 7:02 PM [facility] MCH 30.8 25.6 - 32.2 pg 01/16/2025 7:02 PM [facility] MCHC 33.9 32.3 - 36.5 GM/DL 01/16/2025 7:02 PM [facility] RDW 11.9 11.5 - 14.5 % 01/16/2025 7:02 PM [facility] Platelets 280 182 - 369 K/CU MM 01/16/2025 7:02 PM [facility] MPV 9.9 9.4 - 12.4 fL 01/16/2025 7:02 PM [facility] Nucleated Red Blood Cell 0.0 0 - 0.2 % 01/16/2025 7:02 PM [facility] % Neutros 53 42 - 75 % 01/16/2025 7:02 PM [facility] % Lymphs 35 19 - 52 % 01/16/2025 7:02 PM [facility] % Monos 8 5 - 13 % 01/16/2025 7:02 PM [facility] % Eos 2.2 1.0 - 7.0 % 01/16/2025 7:02 PM [facility] % Baso 1 0 - 2 % 01/16/2025 7:02 PM [facility] NRBC Absolute <0.01 0 - 0.012 K/ul 01/16/2025 7:02 PM [facility] # Neutros 4.10 1.56 - 6.13 K/ L 01/16/2025 7:02 PM [facility] # Lymphs 2.71 K/ L 01/16/2025 7:02 PM [facility] # Monos 0.60 0.24 - 0.82 K/ L 01/16/2025 7:02 PM [facility] # Eos 0.17 0.00 - 6.00 K/ L 01/16/2025 7:02 PM [facility] # Baso 0.06 0.01 - 0.08 K/ L 01/16/2025 7:02 PM [facility] % Imm Grans 0.70 % 01/16/2025 7:02 PM [facility] # IG 0.05 0.00 - 0.05 K/uL 01/16/2025 7:02 PM [facility] Blood Venipuncture / Unknown 01/16/2025 6:36 PM EST 01/16/2025 6:51 PM [facility] - 01/16/2025 7:02 PM EST When [...] ORDERABLES Final Resul t Performing Organization Address City/[facility]/ZIP Co de Phone Number [facility] [address] [place] [address] * TSH (01/16/2025 6:36 PM EST) [facility] TSH 2.191 0.358 - 3.740 uIU/mL 01/16/2025 7:55 PM EST [facility] Blood Venipuncture / Unknown 01/16/2025 6:36 PM EST 01/16/2025 6:51 PM EST [facility] - 01/16/2025 7:55 PM EST Biotin supplements can cause clinically significant incorrect lab test results. The FDA has seen an increase in the number of reported adverse events related to biotin interference with lab tests. us Prateek Saavedra MD LAB BLOOD ORDERABLES Final Resul t Performing Organization Address [facility] Co de Phone Number [facility] [address] [place] [address] * Comprehensive metabolic panel (01/16/2025 6:36 PM EST) [facility] Sodium 141 136 - 145 meq/L 01/16/2025 7:28 PM EST [facility] Potassium 3.5 3.5 - 5.1 meq/L 01/16/2025 7:28 PM EST [facility] Chloride 106 98 - 107 meq/L 01/16/2025 7:28 PM EST [facility] CO2 26 21 - 32 meq/L 01/16/2025 7:28 PM EST [facility] Calcium 8.7 8.5 - 10.1 mg/dL 01/16/2025 7:28 PM EST [facility] Glucose 95 74 - 100 mg/dL 01/16/2025 7:28 PM [facility] BUN 12 7 - 18 mg/dL 01/16/2025 7:28 PM [facility] Creatinine 0.88 0.55 - 1.02 mg/dL 01/16/2025 7:28 PM [facility] Albumin 3.8 3.4 - 5.0 g/dL 01/16/2025 7:28 PM [facility] Alkaline Phosphatase 55 50 - 136 U/L 01/16/2025 7:28 PM [facility] ALT 24 12 - 78 U/L 01/16/2025 7:28 PM [facility] AST 18 15 - 37 U/L 01/16/2025 7:28 PM [facility] Total Bilirubin 0.3 0.2 - 1.0 mg/dL 01/16/2025 7:28 PM [facility] Protein, Total 7.3 6.4 - 8.2 gm/dL 01/16/2025 7:28 PM [facility] Anion Gap 13 01/16/2025 7:28 PM [facility] Globulin 3.5 0.4 - 4.9 g/dL 01/16/2025 7:28 PM [facility] Osmolality Calc 280.8 mOsm/kg 7:28 PM [facility] eGFR (mL/min/1.73m2) >60 >=60 mL/min/1.7 3m2 01/16/2025 7:28 PM [facility] Comment:ESTIMATED GFR IS NOT ACCURATE CREATININE CLEARANCE IN PREDICTING GLOMERULAR FILTRATION RATE. ESTIMATED GFR IS NOT APPLICABLE FOR DIALYSIS PATIENTS. Blood Venipuncture / Unknown 01/16/2025 6:36 PM EST 01/16/2025 6:51 PM EST us Prateek Saavedra MD LAB BLOOD ORDERABLES Final Resul t [facility] [address] [place] [address] * ECG 12 lead (01/16/2025 6:11 PM EST) VENTRICULAR RATE EKG/MIN 93 BPM GE MUSE ATRIAL RATE (MCT) 93 BPM GE MUSE WV Interval 140 ms GE MUSE QRS-INTERVAL (MSEC) 78 ms GE MUSE QT Interval 348 ms GE MUSE QTC Interval 432 ms GE MUSE P [place] 80 degrees GE MUSE R AXIS (MCT) 87 degrees GE MUSE T Wave [place] 67 degrees GE MUSE [place] Diagnosis Normal sinus rhythm with sinus arrhythmia [...] Final Result from Last 3 Months Insurance [facility] Care Teams Bowling Floor Desk Clerk Relationship Specialty Start Date End Date Daja Gallagher, DISTRICT OR DISTRICT OFFICE DIRECTOR [address] [place] [address] PCP - General Nurse Practitioner 01/28/25
--- OUTSIDE RECORDS SUMMARY | 2025-02-18 08:47 | XMS_ITS | Encounter Summary ---
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
--- OUTSIDE RECORDS SUMMARY | 2025-02-18 08:47 | XMS_ITS | Clinical Summary ---
Author Organization [employer] ([place], [place], [place], [place], [place]) Address [address] [place] [address] Care Team Providers Care Instructional Support Services Director Name Role Phone Daja Gallagher ИВАН Primary Care Provider Allergies No known active allergies Medications No known medications Encounters Date Type Department Care Team Description 01/16/2025 6:07 PM EST - 01/16/2025 8:59 PM EST Emergency [facility] Emergency Department [address] [place] [address] Prateek Saavedra MD Fahey, Nicholas, [...] on file Legal Sex Female 5:05 PM [employer] Gender Identity Not on file Sexual Orientation [...] electronically signed by Collin Leroy MD Voice placement officer technology (Power Scribe) is used for the dictation of this note and sound-alike words might be erroneously placed despite reviewing this note for accuracy. Errors in dictation may reflect use of voice recognition software and not all errors in placement officer may have been detected prior to signing. [...] electronically signed by Collin Leroy MD Voice placement officer technology (Power Scribe) is used for the dictation of this note and sound-alike words might be erroneously placed despite reviewing this note for accuracy. Errors in dictation may reflect use of voice recognition software and not all errors in placement officer may have been detected prior to signing. Prateek Hill MD IMG DIAGNOSTIC IMAGING ORDERABLE S Final Result * (ABNORMAL) Urinalysis, Reflex Microscopic and Culture If Indicated (01/16/2025 6:47 PM EST) Color, UA Yellow 01/16/2025 7:02 PM [facility] Clarity, UA Hazy 01/16/2025 7:02 PM [facility] Specific [place], UA 1.010 1.001 - 1.030 01/16/2025 7:02 PM [facility] pH, UA 8.0(H) 6.0 - 7.5 01/16/2025 7:02 PM [facility] Leukocytes, UA Trace(A) Negative 01/16/2025 7:02 PM [facility] Nitrite, UA Negative Negative 01/16/2025 7:02 PM [facility] Protein, UA Negative Negative 01/16/2025 7:02 PM [facility] Glucose, UA Negative Negative 01/16/2025 7:02 PM [facility] Ketones, UA Negative Negative 01/16/2025 7:02 PM [facility] Bilirubin, UA Negative Negative 01/16/2025 7:02 PM [facility] Blood, UA Trace(A) Negative 01/16/2025 7:02 PM [facility] Urobilinogen, UA 0.2 mg/dL Normal 01/16/2025 7:02 PM [facility] Specimen Source Urine, Clean Catch 01/16/2025 7:02 PM [facility] Urine URINE SPECIMEN COLLECTION, CLEAN CATCH / Unknown 01/16/2025 6:47 PM EST 01/16/2025 6:53 PM EST us Prateek Saavedra MD URINE ORDERABLES Final Result [facility] [address] [place] [address] * Triage Drug Screen, Urine (01/16/2025 6:47 PM EST) Amphetamine Urine Negative Negative 025 7:04 PM EST [facility] Barbiturate Screen Negative Negative 2024 7:04 PM [facility] Benzodiazepine Screen Negative Negative 7:04 PM [facility] Cocaine (Metab.) Screen Negative Negative 1 03/18/2024 7:04 PM [facility] MDMA Ur Negative Negative 01/16/2025 7:04 PM [facility] Methadone Screen Negative Negative 01/17/20 7:04 PM [facility] Opiate Screen Negative Negative 01/16/2025 7:04 PM [facility] Phencyclidine Screen Negative Negative 12/28 7:04 PM [facility] Tricyclic Screen Negative Negative 01/17/20 7:04 PM [facility] Tetrahydrocannabinol Negative Negative 12/28 7:04 PM [facility] Methamphetamine Screen Negative Negative 7:04 PM [facility] Oxycodone Screen Negative Negative 01/17/20 7:04 PM [facility] Urine 01/16/2025 6:47 PM EST 01/16/2025 6:52 PM EST Narrative [facility] - 01/16/2025 7:04 PM EST This urine drug of abuse screen is for medical purposes only. A positive result is a preliminary analytical result which has not been confirmed. Drug Cutoff Limits are: Amp/Methamp: 1000 ng/mL Barbiturates: 200 ng/mL Benzodiazepines: 200 ng/mL Cannabinoids: 50 ng/mL Cocaine Metabolites: 300 ng/mL Fentanyl: 1.0 ng/mL Opiates: 300 ng/mL Prateek Saavedra MD URINE ORDERABLES Final Result [facility] [address] [place] [address] * (ABNORMAL) Urinalysis Microscopic Only (01/16/2025 6:47 PM EST) WBC, UA 0-5 None Seen, 0-5 /HPF 01/16/2025 7:03 PM EST [facility] RBC, UA 0-2 None Seen, 0-2 /HPF 01/16/2025 7:03 PM [facility] Bacteria, UA Trace(A) None Seen 01/16/2025 7:03 PM [facility] SQUAMOUS EPITHELIAL 0-2(A) None Seen /HPF 01/16/2025 7:03 PM [facility] Urine URINE SPECIMEN COLLECTION, CLEAN CATCH / Unknown 01/16/2025 6:47 PM EST 01/16/2025 6:53 PM EST us Prateek Saavedra MD URINE ORDERABLES Final Result Performing Organization Address City/[facility]/ZIP Co de Phone Number [facility] [address] [place] [address] * Screen, urine (01/16/2025 6:47 PM EST) Preg Test, Ur Negative Negative, Inconclusive 01/16/2025 7:03 PM [facility] Urine 01/16/2025 6:47 PM EST 01/16/2025 6:52 PM EST us Prateek Saavedra MD URINE ORDERABLES Final Result Performing Organization Address City/[facility]/ZIP Co de Phone Number [facility] [address] [place] [address] * COVID/Influenza A+B Antigen (01/16/2025 6:36 PM EST) SARS-COV/COV 2 ANTIGEN Negative Negative, Invalid 01/16/2025 7:42 PM [facility] INFLUENZA AAG Negative Negative, Invalid 01/16/2025 7:42 PM [facility] INFLUENZA BAG Negative Negative, Invalid 01/16/2025 7:42 PM [facility] Nasal Swab (Nasal) 01/16/2025 6:36 PM EST 01/16/2025 6:51 PM EST [facility] - 01/16/2025 7:42 PM EST [facility] System for Rapid Detection of SARS-CoV-2 & [...] ORDERABLE S Final Result Performing Organization Address City/State/[facility] Co de Phone Number [facility] [address] [place] [address] * CBC with Auto Diff (01/16/2025 6:36 PM EST) WBC 7.7 4.0 - 10.0 K/ L 01/16/2025 7:02 PM [facility] RBC 4.29 3.93 - 5.22 M/ L 01/16/2025 7:02 PM [facility] Hemoglobin 13.2 11.2 - 15.7 GM/DL 01/16/2025 7:02 PM [facility] Hematocrit 38.9 34.1 - 44.9 % 01/16/2025 7:02 PM [facility] MCV 91 79 - 95 fL 01/16/2025 7:02 PM [facility] MCH 30.8 25.6 - 32.2 pg 01/16/2025 7:02 PM [facility] MCHC 33.9 32.3 - 36.5 GM/DL 01/16/2025 7:02 PM [facility] RDW 11.9 11.5 - 14.5 % 01/16/2025 7:02 PM [facility] Platelets 280 182 - 369 K/CU MM 01/16/2025 7:02 PM [facility] MPV 9.9 9.4 - 12.4 fL 01/16/2025 7:02 PM [facility] Nucleated Red Blood Cell 0.0 0 - 0.2 % 01/16/2025 7:02 PM [facility] % Neutros 53 42 - 75 % 01/16/2025 7:02 PM [facility] % Lymphs 35 19 - 52 % 01/16/2025 7:02 PM [facility] % Monos 8 5 - 13 % 01/16/2025 7:02 PM [facility] % Eos 2.2 1.0 - 7.0 % 01/16/2025 7:02 PM [facility] % Baso 1 0 - 2 % 01/16/2025 7:02 PM [facility] NRBC Absolute <0.01 0 - 0.012 K/ul 01/16/2025 7:02 PM [facility] # Neutros 4.10 1.56 - 6.13 K/ L 01/16/2025 7:02 PM [facility] # Lymphs 2.71 K/ L 01/16/2025 7:02 PM [facility] # Monos 0.60 0.24 - 0.82 K/ L 01/16/2025 7:02 PM [facility] # Eos 0.17 0.00 - 6.00 K/ L 01/16/2025 7:02 PM EST [facility] # Baso 0.06 0.01 - 0.08 K/ L 01/16/2025 7:02 PM EST [facility] % Imm Grans 0.70 % 01/16/2025 7:02 PM EST [facility] # IG 0.05 0.00 - 0.05 K/uL 01/16/2025 7:02 PM EST [facility] Blood Venipuncture / Unknown 01/16/2025 6:36 PM EST 01/16/2025 6:51 PM EST Narrative [facility] - 01/16/2025 7:02 PM EST When [...] ORDERABLES Final Resul t Performing Organization Address City/[facility]/ZIP Co de Phone Number [facility] [address] [place] [address] * TSH (01/16/2025 6:36 PM EST) TSH 2.191 0.358 - 3.740 uIU/mL 01/16/2025 7:55 PM EST [facility] Blood Venipuncture / Unknown 01/16/2025 6:36 PM EST 01/16/2025 6:51 PM EST Narrative [facility] - 01/16/2025 7:55 PM EST Biotin supplements can cause clinically significant incorrect lab test results. The FDA has seen an increase in the number of reported adverse events related to biotin interference with lab tests. us Prateek Saavedra MD LAB BLOOD ORDERABLES Final Resul t Performing Organization Address City/[facility] Co de Phone Number [facility] [address] [place] [address] * Comprehensive metabolic panel (01/16/2025 6:36 PM EST) Sodium 141 136 - 145 meq/L 01/16/2025 7:28 PM [facility] Potassium 3.5 3.5 - 5.1 meq/L 01/16/2025 7:28 PM [facility] Chloride 106 98 - 107 meq/L 01/16/2025 7:28 PM [facility] CO2 26 21 - 32 meq/L 01/16/2025 7:28 PM [facility] Calcium 8.7 8.5 - 10.1 mg/dL 01/16/2025 7:28 PM [facility] Glucose 95 74 - 100 mg/dL 01/16/2025 7:28 PM [facility] BUN 12 7 - 18 mg/dL 01/16/2025 7:28 PM [facility] Creatinine 0.88 0.55 - 1.02 mg/dL 01/16/2025 7:28 PM [facility] Albumin 3.8 3.4 - 5.0 g/dL 01/16/2025 7:28 PM [facility] Alkaline Phosphatase 55 50 - 136 U/L 01/16/2025 7:28 PM [facility] ALT 24 12 - 78 U/L 01/16/2025 7:28 PM [facility] AST 18 15 - 37 U/L 01/16/2025 7:28 PM [facility] Total Bilirubin 0.3 0.2 - 1.0 mg/dL 01/16/2025 7:28 PM [facility] Protein, Total 7.3 6.4 - 8.2 gm/dL 01/16/2025 7:28 PM [facility] Anion Gap 13 - 01/16/2025 7:28 PM [facility] Globulin 3.5 0.4 - 4.9 g/dL 01/16/2025 7:28 PM [facility] Osmolality Calc 280.8 mOsm/kg 7:28 PM [facility] eGFR (mL/min/1.73m2) >60 >=60 mL/min/1.7 3m2 01/16/2025 7:28 PM EST [facility] Comment:ESTIMATED GFR IS NOT ACCURATE CREATININE CLEARANCE IN PREDICTING GLOMERULAR FILTRATION RATE. ESTIMATED GFR IS NOT APPLICABLE FOR DIALYSIS PATIENTS. Blood Venipuncture / Unknown 01/16/2025 6:36 PM EST 01/16/2025 6:51 PM EST Prateek Saavedra MD LAB BLOOD ORDERABLES Final Resul t Performing Organization Address City/[facility]/ZIP Co de Phone Number [facility] [address] [phone] * ECG 12 lead (01/16/2025 6:11 PM EST) VENTRICULAR RATE EKG/MIN 93 BPM GE MUSE ATRIAL RATE (MCT) 93 BPM GE MUSE ID Interval 140 ms GE MUSE QRS-INTERVAL (MSEC) 78 ms GE MUSE QT Interval 348 ms GE MUSE QTC Interval 432 ms GE MUSE P [place] 80 degrees GE MUSE R AXIS (MCT) 87 degrees GE MUSE T Wave [place] 67 degrees GE MUSE [place] Diagnosis Normal sinus rhythm with sinus arrhythmia Normal ECG No previous ECGs available Confirmed by Scarlett PACE SUZANNE ([id number]) on 01/21/2025 5:32:41 PM GE MUSE 01/16/2025 6:11 PM EST 01/21/2025 5:32 PM EST Prateek Saavedra MD ECG ORDERABLES Final Result Performing Organization Address City/[facility]/ZIP Co de Phone Number GE MUSE * EKG-SCANNED (01/16/2025) Narrative 01/16/2025 Ordered by an unspecified provider. Default Scanning Provider SCAN ORDERS Final Result from Last [address] [address] BLUE CROSS/BLUE SHIELD Care Teams Instructional Support Services Director Relationship Specialty Start Date End Date Daja Gallagher, DIRECTOR FUNDRAISING [address] [place] [address] PCP - General Nurse Practitioner 01/28/25
== END 2025-02-18 23:59 | disposition home or self-care (01) ==
LOC: RT 08:45
PROVIDERS: PCP Nurse Practitioner Family; Visit Provider Nurse Practitioner
DX: R00.0 Tachycardia, unspecified (principal); R53.83 Other fatigue; R42 Dizziness and giddiness; R00.2 Palpitations
CPT/HCPCS: 93306